=== PATIENT | male | born 1960 | race Caucasian/White ===

== ENCOUNTER 2020-06-16 13:32 | Outpatient (CLI) | payer BC, OTHER, SELFPAY ==
--- NOTE | ~2020-06-16 | MR_ITS ---
EXAMINATION: MR shoulder RT wo con DATE: 06/16/2020 14:44 INDICATION: Right shoulder pain. TECHNIQUE: Magnetic resonance imaging (MRI) of the right shoulder was performed without intravenous c ontrast. Sequences included axial PD-weighted FS FSE, coronal oblique PD-weighted FS FSE and T2-weigh pawan FS FSE, and sagittal oblique T2-weighted FS FSE and T1-weighted FSE. COMPARISON: Right shoulder radiographs 06/05/2020 FINDINGS: Coracoacromial arch: The acromion undersurface is curved in morphology (type II). There is severe acromioclavicular joint osteoarthritis including inferiorly directed osteophytes. There is moderate subacromial/subdeltoid bu rsitis. Rotator cuff: There is severe supraspinatus and infraspinatus tendinopathy. There is a bursal sided tear of suprasp inatus and infraspinatus tendons at the distal attachments measuring 2.0 cm anterior to posterior by 2 mm proximal to distal by up to 60% tendon thickness. Teres minor tendon is normal. There is severe subscapularis tendinopathy with small interstitial tear. There is no asymmetric fatty atrophy of the rotator cuff muscle bellies. Biceps tendon and glenoid labrum: Biceps tendon is in bicipital groove. There is mild intra-articular biceps tendinopathy. There is deg eneration of the superior labrum without well-defined tear. Fluid: There is no glenohumeral joint effusion. Bones/cartilage: Glenoid cartilage is normal. Humeral head cartilage is normal. IMPRESSION: 1. Severe rotator cuff tendinopathy with partial-thickness tears. 2. Mild intra-articular biceps tendinopathy. 3. Severe acromioclavicular joint osteoarthritis. 4. Moderate subacromial/subdeltoid bursitis. Reviewed, dictated and finalized at location A.
== END 2020-06-16 13:33 | disposition home or self-care (01) ==
LOC: ANHIMG 13:33
PROVIDERS: PCP Family Medicine; Visit Provider Nurse Practitioner Family
DX: M19.011 Primary osteoarthritis, right shoulder (principal); M75.51 Bursitis of right shoulder
CPT/HCPCS: 73221

== ENCOUNTER 2020-08-14 02:53 | Outpatient (CLI) | payer BC, OTHER, SELFPAY ==
[2020-08-14 16:34] LABS: SARS-CoV-2 RNA PCR Negative
== END 2020-08-14 02:54 | disposition home or self-care (01) ==
LOC: ANHCOVIDDT 02:54
PROVIDERS: PCP Family Medicine; Visit Provider Orthopaedic Surgery
DX: Z01.818 Encounter for other preprocedural examination (principal); Z20.828 Contact with and (suspected) exposure to other viral communicable diseases
CPT/HCPCS: 87635; C9803; U0003

== ENCOUNTER 2020-08-14 08:41 | Outpatient (CLI) | payer BC, OTHER, SELFPAY ==
--- NOTE | 2020-08-14 08:43 | ECG_ITS ---
Measurements Intervals [place] Rate: 64 P: 63 SD: 224 QRS: 11 QRSD: 94 T: 13 QT: 342 QTc: 353 Interpretive Statements SINUS RHYTHM WITH FIRST DEGREE AV BLOCK BORDERLINE T WAVE ABNORMALITY- INFERIOR LEADS BASELINE ARTIFACT- I, II, III, AVR, AVL, AVF ABNORMAL ECG Electronically Signed On 08-14-2020 8:58:41 CDT by Zachary Qureshi D.O.
[2020-08-14 09:36] LABS: Anion Gap 7 mmol/L (8-16); Blood Urea Nitrogen 20 mg/dL (9-20); Calcium 9.4 mg/dL (8.4-10.2); Carbon Dioxide 28 mmol/L (22-30); Chloride 100 mmol/L (98-107); Estimated Glomerular Filt Rate > 60; Glucose 120 mg/dL (75-110); Potassium 4.1 mmol/L (3.4-5.0); Sodium 135 mmol/L (137-145)
== END 2020-08-14 08:42 | disposition home or self-care (01) ==
LOC: ANHSURGERY 08:43
PROVIDERS: Anesthesiology; PCP Family Medicine; Visit Provider Orthopaedic Surgery
DX: Z01.818 Encounter for other preprocedural examination (principal); T50.2X5A Adverse effect of carbonic-anhydrase inhibitors, benzothiadiazides and other diuretics, initial encounter; I10 Essential (primary) hypertension; I44.0 Atrioventricular block, first degree
CPT/HCPCS: 36415; 80048; 93005

== ENCOUNTER 2020-08-16 00:07 | Day surgery (SDC) | payer BC, OTHER, SELFPAY ==
[2020-08-02 17:32] VITALS: BMI 35.3
--- NOTE | 2020-08-15 08:40 | PM.IMHP ---
H&P: HPI History of Present Illness Chief complaint: rt rotator cuff tear, rt ac joint djd Narrative: Shoulder/Arm Injury/Condition Pt. presents with Rt shoulder pain. Pt. states that there was not an injury but the pain started at the end of March. Dominant hand: right Current symptoms: Reports stiffness, weakness, radiation and crepitus Location: superior Character: constant, radiating and other (sharp ) Pain scale (0-10): 6 Onset: 1-3 months Exacerbated by: lifting, prolonged activity, sleeping, reaching/overhead motion and other (pushing objects ) Previous treatments: Anti-inflammatory meds: right, Heat: right and Other: right (rest ) Improved by treatment/surgery: no Review of Systems Review of Systems: All systems reviewed & are unremarkable except as noted in HPI and below Constitutional: Constitutional: Denies headache(s) and Denies weakness Eyes: Eyes: Denies blurry vision, Denies change in vision and Denies loss of vision ENT: Denies dizziness, Denies dry mouth, Denies headache(s) and Denies nasal congestion Cardiovascular: Cardiovascular: Denies chest pain, Denies syncope, Denies leg edema and Denies dyspnea on exertion Respiratory: Respiratory: Denies cough and Denies dyspnea on exertion Gastrointestinal: Gastrointestinal: Denies abdominal pain, Denies constipation and Denies diarrhea Genitourinary: Genitourinary: Denies urinary frequency Musculoskeletal: Musculoskeletal: Reports as per HPI and Denies numbness Integumentary/Breasts: Skin/Breast: Reports system reviewed and no additional complaints, except as docu Neurologic: Denies dizziness, Denies syncope, Denies headache(s), Denies loss of vision, Denies numbness and Denies weakness Psychiatric: Psychiatric: Reports no additional psychiatric complaints Endocrine: Endocrine: Reports no additional endocrine complaints Hematologic/Lymphatic: Hematologic/Lymphatic: Reports no additional hematologic/lymphatic complaints [facility] Past Medical History Medical History Allergic rhinitis, unspecified Back pain with history of spinal surgery Chronic left-sided low back pain with left-sided sciatica Essential hypertension Eustachian tube dysfunction Hypertension Mixed hyperlipidemia NOVA (obstructive sleep apnea) Other intervertebral disc degeneration, lumbar region Right shoulder pain Rotator cuff tear Screening for prostate cancer Seasonal allergies Subacromial bursitis Testosterone deficiency Surgical History Surgical History History of foot surgery Family History Family History Father Hypertension Family history of diabetes mellitus in first degree relative Family history of coronary artery disease Cerebrovascular accident, Onset Age: 72 Mother Patient's mother is in good health Social History Social History Smoking status: Never smoker Second hand tobacco smoke exposure: No Alcohol intake: current Drinks per week: 3 Substance use: never Spiritual care concerns: No Meds Home Medications and Allergies Home Medications Medication Instructions Recorded Confirmed Type loratadine 10 mg tablet 10 mg PO DAILY 11/11/19 08/02/20 History fluticasone propionate 50 1 spray NASAL DAILY #3 device 01/10/20 08/02/20 Rx mcg/actuation nasal spray,suspension meloxicam 15 mg tablet 15 mg PO DAILY #90 tablet 01/10/20 08/02/20 Rx atorvastatin 40 mg tablet 40 mg PO DAILY #90 tablet 01/17/20 08/02/20 Rx testosterone 5 pump TRANSDERM QAM #180 gm 07/25/20 08/02/20 Rx acetaminophen [Tylenol Extra 500 mg PO BID 08/02/20 08/02/20 History Strength] hydrochlorothiazide 12.5 mg PO DAILY 08/02/20 08/02/20 History lisinopril 10 mg PO DAILY 08/02/20 08/02/20 History Allergies Allergy/AdvReac Type Severity Reaction Sta
[2020-08-16] VITALS (8 sets, daily range): BP systolic 155–175; BP diastolic 80–105; PULSE 72–96; RESP 16–18; TEMP 36.2–37.2; O2SAT 93–100
--- NOTE | 2020-08-16 07:22 | WPDHPUPDATE1 ---
History and Physical Update Update Date/Time: 08/16/20 07:22 History and Physical has been reviewed, including an updated exam of the patient. There are NO changes in the patient's condition. Risks, benefits, and alternatives have been discussed and questions answered. Patient agrees to proceed with procedure.
[2020-08-16] MEDS: LACTATED RINGERS 1,000 ML 30 ML IV CONT ×2 (09:00→14:00)
[2020-08-16] MEDS: ACETAMINOPHEN 500 MG TABLET 1000 MG PO (09:16)
[2020-08-16] MEDS: CELECOXIB 200 MG CAPSULE PO (09:16)
--- NOTE | 2020-08-16 09:44 | WPDANESEPPF ---
Anes - Initial Pre Proc Eval Procedure: Operation Date: 08/16/20 10:30 Proposed Procedures p Right Rotator Cuff Repair, Distal Clavicle Excision - Amadeo Urbina MD Date/Time: 08/16/20 09:44 Surgeon: mAadeo Urbina MD Pre Op Diagnosis: rt rotator cuff tear, rt ac joint djd Patient Data Age: 59 Gender: M Height: 6 ft 1 in Weight: 120.8 kg Last Vital Signs Temp 37.2 C 08/16/20 09:23 Pulse 72 08/16/20 09:23 Resp 16 08/16/20 09:23 BP 158/92 H 08/16/20 09:23 Pulse Ox 97 08/16/20 09:23 Allergies Allergy/AdvReac Type Severity Reaction Status Date / Time red dye Allergy Mild lip Verified 08/16/20 08:41 swelling Home Medications Medication Instructions Recorded Confirmed Type loratadine 10 mg tablet 10 mg PO DAILY 11/11/19 08/16/20 History fluticasone propionate 50 1 spray NASAL DAILY #3 device 01/10/20 08/16/20 Rx mcg/actuation nasal spray,suspension meloxicam 15 mg tablet 15 mg PO DAILY #90 tablet 01/10/20 08/16/20 Rx atorvastatin 40 mg tablet 40 mg PO DAILY #90 tablet 01/17/20 08/16/20 Rx testosterone 5 pump TRANSDERM QAM #180 gm 07/25/20 08/16/20 Rx acetaminophen [Tylenol Extra 500 mg PO BID 08/02/20 08/16/20 History Strength] hydrochlorothiazide 12.5 mg PO DAILY 08/02/20 08/16/20 History lisinopril 10 mg PO DAILY 08/02/20 08/16/20 History Patient hx anesthesia problems: none Family hx anesthesia problems: none PMFSH Past Medical History Medical History Allergic rhinitis, unspecified Back pain with history of spinal surgery Chronic left-sided low back pain with left-sided sciatica Essential hypertension Eustachian tube dysfunction Hypertension Mixed hyperlipidemia NOVA (obstructive sleep apnea) Other intervertebral disc degeneration, lumbar region Right shoulder pain Rotator cuff tear Screening for prostate cancer Seasonal allergies Subacromial bursitis Testosterone deficiency Surgical History Surgical History History of foot surgery Family History Family History Father Hypertension Family history of diabetes mellitus in first degree relative Family history of coronary artery disease Cerebrovascular accident, Onset Age: 72 Mother Patient's mother is in good health Social History Social History Smoking status: Never smoker Second hand tobacco smoke exposure: No Alcohol intake: current Drinks per week: 3 Substance use: never Living arrangements: with family Spiritual care concerns: No Anes - Eval Final PreProcedure Day of Procedure 08/16/20 09:44 Patient weight: obese Heart: regular rate and rhythm Lungs: clear to auscultation Airway: Mallampati scale class II Neurological: alert and oriented Last oral intake: >/= 8 hours ASA classification: III Emergent: no Anesthetic plan: proceed Anesthesia type and monitoring: general ETT and standard monitoring Informed Consent: The patient's anesthetic plan and its attendant risks and benefits were discussed with the patient/family/POA. Questions were solicited and answers provided to the satisfaction of the patient/family/POA.
--- NOTE | 2020-08-16 10:55 | WPDANESPNB ---
Anes - Peripheral Nerve Block Date/Time: 08/16/20 10:55 I have discussed with the patient/family/POA the placement of a peripheral nerve block for post-operative pain management, including associated risks, benefits, complications, and side effects. Alternative methods of post-operative analgesia were detailed. Questions were solicited and answers provided to the satisfaction of the patient/family/POA. Time-Out: A pre-procedural Time-Out was completed immediately before starting the procedure and confirmed: Patient Identification, Site, Procedure, Patient Position and the Availability of Requisite Equipment. Clinical Indications: Acute post-operative pain management requested by the operative surgeon. Nerve Block Insertion Note Anes-nerve block: interscalene right Skin prep: chlorhexidine Needle: 22 gauge, stimulating, insulated echogenic needle. Needle length: 50 mm Technique: ultrasound Injectate: bupivacaine 0.5% with epi 5 mcg/ml (30) and dexamethasone (mg) (8) Observations: tolerated well Complications: none Procedure start time:: 1045 Procedure end time:: 1051
[2020-08-16] MEDS: ceFAZolin 3 GM/D5W 100 ML 100 ML IVPB (10:57)
--- NOTE | 2020-08-16 14:29 | SUR.PHASEI ---
PT TOOK HIS LEFT ARM AND PICKED UP HIS RT ARM AND MOVED IT UPWARDS. ASKED PT NOT TO MOVE SURGICAL ARM WITH LT ARM. DO NOT WANT TO RISK INJURY WITH NERVE BLOCK AND NUMBNESS. PT VERBALIZED UNDERSTANDING. GLASSES GIVEN TO PT
--- NOTE | 2020-08-16 14:45 | SUR.PHASEI ---
PT AWAKE AND ALERT. STATES READY TO SIT IN RECLINER AND HAVE A DRINK. MEETS DISCHARGE CRITERIA
--- NOTE | 2020-08-16 16:02 | PM.PROC ---
Procedure Note - Detailed Date of procedure: 08/16/20 Pre-op diagnosis: rt rotator cuff tear, rt ac joint djd Post-op diagnosis: same Procedure performed: REPAIR OF RIGHT ROTATOR CUFF WITH DCE Description of procedure: THE PATIENT WAS TAKEN TO THE OPERATING ROOM AND THEN INTUBATED AND PLACED IN THE BEACH CHAIR POSITION. THE RIGHT UPPER EXTREMITY WAS PREPPED AND DRAPED IN THE NORMAL STERILE FASHION. AN INCISION WAS MADE IN BETWEEN THE DOMINIC-LATERAL ACROMION AND THE AC JOINT. THE FASCIA WAS IDENTIFIED. THE AC JOINT WAS PALPATED. AN INCISION WAS MADE OVER THE CAPSULE OF THE AC JOINT. THE AC JOINT WAS EXPOSED. THERE WAS SEVERE DJD. A DISTAL CLAVICLE EXCISION WAS PREFORMED REMOVING APPROXIMATELY 1 CM OF BONE FROM THE DISTAL CLAVICLE. AND AN OSTEOPHYTE WAS REMOVED FROM THE UNDERSURFACE OF THE CLAVICLE. THE WOUND WAS WASHED AND THE CAPSULE WAS CLOSED WITH 0 VICRYL SUTURE. NEXT A MINI OPEN INCISION WAS MADE THROUGH THE DELTOID MUSCLE EXPOSING THE SUBACROMIAL SPACE. A LIMITED ACROMIOPLASTY WAS PREFORMED. THE ROTATOR CUFF WAS IDENTIFIED. THERE WAS A LARGE TEAR TO THE ENTIRE CUFF. THERE WAS ALSO A VERTICAL THROUGH THE SUPRASPINATUS TENDON. THE GREATER TUBEROSITY WAS DEBRIDED TO BLEEDING BONE. 3 ATHREX 5.5 SUTURE ANCHORS WERE PLACED IN TO GOOD BONE AND HAD VERY GOOD BITES. ABBIE-JEIMY TYPE REPAIRS WERE DONE TO THE ROTATOR CUFF AND THERE WAS GOOD APPROXIMATION TO THE GREATER TUBEROSITY. THE VERTICAL COMPONENT WAS ALSO REPAIRED WITH #2 FIBER WIRE. THE REPAIR WAS EXCELLENT. THERE WAS NO IMPINGEMENT ON THE REPAIR FROM THE ACROMION WITH RANGE OF MOTION. THE WOUND WAS IRRIGATED WITH COPIOUS AMOUNTS OF ANTIBIOTIC SOLUTION. THE DELTOID MUSCLE WAS REPAIRED WITH #2 FIBER WIRE AND 0 VICRYL SUTURE. THE SUBCUTANEOUS LAYER WAS APPROXIMATED WITH 2-0 VICRYL. THE SKIN WAS APPROXIMATED WITH 3-0 QUIL AND DERMABOND. STERILE DRESSING WAS APPLIED. PATIENT WAS EXTUBATED. Surgeon: Amadeo Urbina MD
== END 2020-08-16 16:05 | disposition home or self-care (01) ==
PROVIDERS: PCP Family Medicine; Visit Provider Orthopaedic Surgery
PROC: (CPT 23420; principal; 2020-08-16 10:30)
DX: M75.101 Unspecified rotator cuff tear or rupture of right shoulder, not specified as traumatic (principal); G89.18 Other acute postprocedural pain; I10 Essential (primary) hypertension; E78.2 Mixed hyperlipidemia; G47.33 Obstructive sleep apnea (adult) (pediatric); E66.9 Obesity, unspecified; Z68.35 Body mass index [BMI] 35.0-35.9, adult
CPT/HCPCS: 23420; 23120; 64415; A4565; A9270; C1713; J0360; J0690; J1100; J2250; J2405; J2704; J2710; J3010; J7120

== ENCOUNTER 2021-06-28 00:36 | Day surgery (SDC) | payer BC, OTHER, SELFPAY ==
[2021-06-22 14:02] VITALS: BMI 36.3
--- NOTE | 2021-06-28 07:12 | WPDHPUPDATE1 ---
History and Physical Update Update Date/Time: 06/28/21 07:12 History and Physical has been reviewed, including an updated exam of the patient. There are NO changes in the patient's condition. Risks, benefits, and alternatives have been discussed and questions answered. Patient agrees to proceed with procedure.
[2021-06-28 12:25] VITALS: BP 127/64; PULSE 79; RESP 20; TEMP 36.3; O2SAT 97
[2021-06-28] MEDS: LIDO 1%/EPINEPHRINE 1:100,000 20 ML VIAL 6 ML INFILTRATE (13:15)
[2021-06-28 13:19] VITALS: BP 134/73; PULSE 73; RESP 20; O2SAT 96
[2021-06-28 13:29] VITALS: BP 167/79; PULSE 72; RESP 20; O2SAT 96
[2021-06-28 13:36] VITALS: BP 148/73; PULSE 70; RESP 20; O2SAT 96
[2021-06-28] MEDS: BACITRACIN OINTMENT 15 GM TUBE 1 APPLIC TOPICAL (13:36)
--- NOTE | 2021-06-28 14:35 | PM.OP ---
Procedure Note - Brief Procedure Note - Brief Date of procedure: 06/28/21 Pre-op diagnosis: left carpal tunnel syndrome Post-op diagnosis: same Procedure performed: Left open carpal tunnel release Anesthesia: local Surgeon: Ulices Ortiz MD Drains: No Packing: No Pathology: none sent Complications: No immediate complications Condition: stable Disposition: same day
--- NOTE | 2021-06-28 14:45 | W.PM.PROC2 ---
Procedure Note - Detailed Date of Procedure 06/28/21 Pre-op Diagnosis left carpal tunnel syndrome Post-op Diagnosis same Procedure Performed left open carpal tunnel release Surgeon Ulices Ortiz MD Anesthesia local Description of Procedure the left wrist was marked in holding area. The patient was taken to the operating room placed supine on the operating table. The time-out was held and confirmed. The site was identified And marked. It was locally infiltrated with 1% lidocaine with epinephrine. The tourniquet was inflated to 250 mmHg. the incision was made as marked and dissection was carried bluntly through the subcutaneous tissue to the palmar fascia. This and the carpal ligament were incised with a 15. Blade. Under 3 point retraction the ligament divided distally and proximally for complete release. There is no unusual anatomy noted the wound was closed with interrupted 4-0 nylon suture. A small bandage applied as usual. The tourniquet was released and he is discharged in stable condition. Drains No Packing No Pathology none sent Complications No immediate complications Condition stable Disposition same day
[2021-06-28 14:57] VITALS: BP 124/64; PULSE 70; RESP 16; O2SAT 98
== END 2021-06-28 14:00 | disposition home or self-care (01) ==
PROVIDERS: PCP Family Medicine; Visit Provider Plastic Surgery
PROC: (CPT 64721; principal; 2021-06-28 13:30)
DX: G56.02 Carpal tunnel syndrome, left upper limb (principal)
CPT/HCPCS: 64721; A9270

== ENCOUNTER 2021-11-14 14:30 | Outpatient (RCR) | payer BC, OTHER, SELFPAY ==
--- NOTE | 2021-10-16 08:58 | OTOPEVAL ---
OCCUPATIONAL THERAPY INITIAL EVALUATION REPORT 10/16/21 Thank you for referring Jayy Soares to [facility].? The patient is scheduled to be seen for therapy? 2x/week for 3 weeks. Please review, sign, date and return this plan of care ROXANNE. I agree with and certify that the following plan of care is medically necessary. Referring Physician Date Referring Provider: Ulices Ortiz MD *OT Outpatient Evaluation Start: 10/16/21 07:49 Outpatient Past Medical History Neurological History Hx Neurological Disorders No Significant History Cardiovascular History Hx Hypercholesterolemia Yes Hx Hypertension Yes Respiratory History Hx Bronchitis Yes Hx Sleep Apnea Yes: uses CPAP Hx Other Respiratory Disorders Yes: seasonal allergies Gastrointestinal History Hx Gastrointestinal Disorders No Significant History Genitourinary History Hx Genitourinary Disorders No Significant History Musculoskeletal History Hx Arthritis Yes Hx Fractures Yes: left arm, left foot, left ankle Hx Spinal Surgery Yes: 3 back surgeries Hematological History Hx Hematological Disorders No Significant History Endocrine History Hx Endocrine Disorders No Significant History HEENT History Hx HEENT Disorders No Significant History Integumentary History Hx Shingles Yes: VACCINATES Reproductive History Hx Reproductive Disorders No Significant History Psychosocial History Hx Psychiatric Disorders No Significant History Pain History History of Any Previous or Ongoing No Significant History Instance of Pain Anesthesia History Hx Anesthesia Reactions No Significant History Evaluation Information Problem Diagnosis Surgical site pain s/p left carpal tunnel release Onset 06/28/21 Subjective Information Patient reports experiencing Query Text:As Reported By Patient/ residual pain in the left palm Family with lifting, gripping, and palpation. He notes that he has noticed using the hand less because of the pain and hypersensitivity. Prior Level of Function Activity Level (Last 3 Months) Occupation Works @ [employer] Hand Dominance Right Driving Yes Pain Assessment Timing of Pain Assessment Timing of Pain Assessment Assessment Pain Scale Pain Scale Used Numeric (1 - 10) Self Report Pain Assessment Left Hand(s) Reported Pain Level 0 Lowest Pain Intensity 0 Greatest Pain Intensity 6 Pain Score Pain Score 0: Self Report Upper Extremity Range o
--- NOTE | 2021-11-14 15:13 | OTOPEVAL ---
OCCUPATIONAL THERAPY RE-EVALUATION AND DISCHARGE SUMMARY 11/14/21 Patient presents today for OT re-evaluation following 3 weeks of therapy. Therapy has consisted of use of modalities, scar mgmt, manual therapy, and ROM/tendon glides. He reports improved functional use of his hands, reduced pain with hand use, and is able to put pressure through his palm with less pain. He is independent with all materials and ready for discharge. Thank you for referring Jayy Soares to [facility]. Please review, sign, date and return this D/C Note ROXANNE. I agree with and certify that the following plan of care is medically necessary. Referring Physician Date Referring Provider: Ulices Ortiz MD *OT Outpatient Re-Evaluation Start: 10/16/21 07:49 Problem Diagnosis Surgical site pain s/p left carpal tunnel release Onset 06/28/21 Subjective Information Patient reports that the hand Query Text:As Reported By Patient/ has improved since beginning Family therapy. He states that he is able to cheese cutter items put pressure through his hand now with less intense pain. He reports being able to use his left hand without having to think about it . Pain Assessment Timing of Pain Assessment Timing of Pain Assessment Re-assessment Pain Scale Pain Scale Used Numeric (1 - 10) Self Report Pain Assessment Left Hand(s) Reported Pain Level 0 Lowest Pain Intensity 0 Greatest Pain Intensity 4 Other Pain Aggravating Factors Pressure on the incision Pain Score Pain Score 0: Self Report Upper Extremity Range of Motion Finger Range of Motion Bilateral Finger Range of Motion Comments Finger active ROM is WNL and symmetrical to the right hand. Thumb Range of Motion Bilateral Thumb Range of Motion Comments Thumb active ROM is WNL and symmetrical to the right hand. Hand Double Corner Cutter/Pinch Strength Assessment Hand Left Double Corner Cutter Strength (lbs) 94.67 Lateral Pinch Strength (lbs) 24 Palmar Pinch Strength (lbs) 13 Tip Pinch Strength (lbs) 13 Hand Double Corner Cutter/Pinch Strength Comments Norms: -Double Corner Cutter 85 lbs. -Lateral 19 lbs. -Palmar 16 lbs. -Tip 16.5 lbs. OT Clinical Summary OT Clinical Summary Patient presents today for OT re-evaluation following 3 weeks of therapy. Therapy has consisted of use of modalities , scar mgmt, manual therapy, and ROM/tendon glides. He
== END 2021-11-15 14:00 | disposition home or self-care (01) ==
LOC: ANHOT 14:30
PROVIDERS: PCP Family Medicine; Visit Provider Plastic Surgery
DX: G89.18 Other acute postprocedural pain (principal)
CPT/HCPCS: 97018; 97035; 97110; 97140; 97165

== ENCOUNTER → 2022-03-05 14:35 | Outpatient (CLI) | payer BC, OTHER, SELFPAY ==
--- NOTE | ~2022-03-05 | XR_ITS ---
EXAM: XR cervical spine min 6V HISTORY: Radiculopathy, cervical region COMPARISON: 10/01/2011. FINDINGS: Craniocervical association and atlantoaxial joint are normal. No prevertebral soft tissue swelling. The vertebral body heights and are maintained. Minimal grade 1 anterolisthesis of C2 on 3, C3 on 4, and C5 on C6 in flexion that reduces in extension. Multilevel facet and uncovertebral joint hypertrophy may contribute to right-sided neural foraminal narrowing however the degree of which is e xacerbated by suboptimal positioning. IMPRESSION: Multilevel mild dynamic listhesis. Right-sided neural foraminal narrowing is suspected. If clinically consistent, consider CT of the cervical spine for further evaluation and better characterization. Reviewed, dictated and finalized at location K. IMPRESSION: Multilevel mild dynamic listhesis. Right-sided neural foraminal narrowing is cao spected. If clinically consistent, consider CT of the cervical spine for furthe r evaluation and better characterization.
== END ==
PROVIDERS: Visit Provider Neurological Surgery
DX: M54.12 Radiculopathy, cervical region (principal)
CPT/HCPCS: 72052

== ENCOUNTER 2022-07-04 10:41 | Outpatient (CLI) | payer BC, OTHER, SELFPAY ==
--- NOTE | ~2022-07-04 | MR_ITS ---
EXAMINATION: MR cervical spine wo con DATE: 07/04/2022 11:12 INDICATION: Cervical radiculopathy. TECHNIQUE: Magnetic resonance imaging (MRI) of the cervical spine was performed without intravenous c ontrast. Sequences included sagittal T2-weighted FSE, sagittal T2-weighted FS FSE, sagittal T1-weight ed FSE, axial MERGE, and axial T2-weighted FSE. COMPARISON: CT cervical spine radiographs 03/05/2022 FINDINGS: Bone alignment is normal. Vertebral body heights are normal. There is mildly decreased disc height at C5-C6 and C6-C7. The spinal cord signal intensity is normal. The following disc levels are specifically discussed: C2-C3: The disc does not extend beyond the endplate margin. There is moderate right and mild left unc overtebral joint osteoarthritis. There is severe right and mild left facet joint osteoarthritis. Ther e is moderate right neural foraminal stenosis. There is no central canal stenosis. C3-C4: There is a central extrusion. There is mild bilateral uncovertebral joint osteoarthritis. Ther e is moderate right and mild left facet joint osteoarthritis. There is no neural foraminal stenosis. There is no central canal stenosis. C4-C5: The disc is bulging with superimposed central extrusion. There is mild bilateral uncovertebral joint osteoarthritis. There is mild bilateral facet joint osteoarthritis. There is moderate right an d mild left neural foraminal stenosis. There is mild central canal stenosis. C5-C6: There is a right central extrusion. There is mild bilateral uncovertebral joint osteoarthritis . There is moderate left facet joint osteoarthritis. There is mild bilateral neural foraminal stenosi s. There is mild central canal stenosis. C6-C7: There is a left central extrusion. There is no uncovertebral joint osteoarthritis. There is mo derate right and mild left facet joint osteoarthritis. There is no neural foraminal stenosis. There i s mild central canal stenosis with ventral indentation of the spinal cord. C7-T1: The disc does not extend beyond the endplate margin. There is no uncovertebral joint osteoarth ritis. There is severe right and moderate left facet joint osteoarthritis. There is mild bilateral ne ural foraminal stenosis. There is no central canal stenosis. IMPRESSION: 1. Moderate cervical spondylosis. Reviewed, dictated and finalized at location A.
== END 2022-07-04 10:42 | disposition home or self-care (01) ==
LOC: ANHIMG 10:44
PROVIDERS: PCP Family Medicine; Visit Provider Neurological Surgery
DX: M47.22 Other spondylosis with radiculopathy, cervical region (principal)
CPT/HCPCS: 72141

== ENCOUNTER 2022-10-04 08:27 | Emergency (ER) | payer BC, OTHER, SELFPAY ==
[2022-10-04 08:36] VITALS: BP 156/96; PULSE 72; RESP 16; TEMP 36.6; O2SAT 98
--- NOTE | 2022-10-04 08:43 | ED.EAR ---
HPI - Ear Problem General Chief complaint: Ear Stated complaint: EARACHE Time Seen by Provider: 10/04/22 08:48 Source: patient and RN notes reviewed Mode of arrival: ambulatory Limitations: no limitations History of Present Illness HPI Narrative: 62-year-old male presents concerned for sinus pressure and ear pain. He reports he has had ear fullness, pain and was treated for possible infection several weeks ago with cefdinir and steroids. He reports the symptoms not greatly improved with those medications. He reports he flies a lot for work and has had eardrum ruptures before. He reports he flew on an airplane yesterday, he has been taking Flonase, Sudafed, allergy medicine without much relief of his symptoms. Reports facial pain pressure is getting worse. MD Complaint: ear pain Related Data Home Medications Medication Instructions Recorded Confirmed lisinopril 10 mg tablet 30 mg PO DAILY 06/27/21 10/04/22 fexofenadine 180 mg tablet 180 mg PO DAILY 08/22/21 10/04/22 (Nicole Allergy) testosterone 10 mg/0.5 5 pump transdermal QAM 10/04/22 10/04/22 gram/actuation transdermal gel pump Allergies Allergy/AdvReac Type Severity Reaction Status Date / Time red dye Allergy Mild lip Verified 10/04/22 08:30 swelling Review of Systems Review of Systems: CONSTITUTIONAL: Denies malaise, chills, sweats, or fever. EYES: Denies visual changes, redness, or discharge. ENT: Reports rhinorrhea, congestion, sinus pain, right ear pain and pressure CARDIOVASCULAR: Denies chest pain, palpitations, or edema. RESPIRATORY: Denies cough. Denies dyspnea. GASTROINTESTINAL: Denies abdominal pain, nausea, vomiting, diarrhea SKIN: Denies rash or itching. MUSCULOSKELETAL: Denies myalgia. NEUROLOGIC: Denies headache. All systems reviewed & are unremarkable except as noted in HPI and below PMFSH Past Medical History Medical History (Updated 10/04/22 @ 08:57 by Kamilah Hahn NP) Allergic rhinitis, unspecified Back pain with history of spinal surgery BMI 37.0-37.9, adult Chondrocalcinosis Chronic left-sided low back pain with left-sided sciatica Chronic right hip pain Dry eyes, bilateral Essential hypertension Eustachian tube dysfunction Hypertension Mixed hyperlipidemia NOVA (obstructive sleep apnea) Other intervertebral disc degeneration, lumbar region Right knee DJD Right shoulder pain Rotator cuff tear Screening for prostate cancer Seasonal allergies Serous otitis media Subacromial bursitis Testosterone deficiency Surgical History Surgical History History of carpal tunnel release History of foot surgery Family History Family History Father Hypertension Family history of diabetes mellitus in first degree relative Family history of coronary artery disease Cerebrovascular accident, Onset Age: 72 Mother Patient's mother is in good health Sibling No problems noted. 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 There is no relevant family history pertinent to the presenting complaint Exam Narrative: GENERAL: Well-appearing, well-nourished, and in no acute distress. HEAD: Normocephalic EYES: PERRLA, conjunctivae clear ENT: Nares clear, turbinates leif
== END 2022-10-04 08:59 | disposition home or self-care (01) ==
PROVIDERS: Emergency Provider Nurse Practitioner; PCP Family Medicine
DX: J32.9 Chronic sinusitis, unspecified (principal); I10 Essential (primary) hypertension; E78.2 Mixed hyperlipidemia
CPT/HCPCS: 99213; G0463

== ENCOUNTER 2022-10-04 12:28 | Outpatient (CLI) | payer BC, OTHER, SELFPAY ==
--- NOTE | ~2022-10-04 | MR_ITS ---
EXAMINATION: MR lumbar spine wo con DATE: 10/04/2022 13:02 INDICATION: Radiculopathy, lumbar region. TECHNIQUE: Magnetic resonance imaging (MRI) of the lumbar spine was performed without intravenous con trast. Sequences included sagittal T2-weighted FSE, sagittal T2-weighted FS FSE, sagittal T1-weighted FSE, and axial T2-weighted FSE. COMPARISON: Lumbar spine MRI 10/18/2019 FINDINGS: There is 5 degrees dextrocurvature of thoracolumbar spine. There is 3 mm retrolisthesis of L1 on L2 and L5 on S1. There is mild chronic anterior wedging of T12 vertebral body. There are Schmor l's nodes at multiple levels. There is moderately decreased disc height at L1-L2 and L4-L5 and severe ly decreased disc height at L5-S1 with endplate remodeling. Epidural lipomatosis is noted. The distal spinal cord signal intensity is normal. The conus medullaris is at T12. The following disc levels ar e specifically discussed: L1-L2: The disc is bulging and has an annular fissure. There is mild bilateral facet joint osteoarthr itis. There is mild right and moderate left neural foraminal stenosis. There is mild central canal st enosis. There is moderate stenosis of left lateral recess. L2-L3: The disc is bulging. There is moderate bilateral facet joint osteoarthritis. There is mild rig ht and moderate left neural foraminal stenosis. There is mild central canal stenosis. L3-L4: The disc is bulging and has an annular fissure. There is moderate right and mild left facet robin int osteoarthritis. There is moderate bilateral neural foraminal stenosis. There is moderate central canal stenosis. L4-L5: The disc is bulging and has an annular fissure. There is severe right and moderate left facet joint osteoarthritis. There is moderate bilateral neural foraminal stenosis. There is mild central ca nal stenosis. There is moderate stenosis of the lateral recesses. L5-S1: The disc is bulging with superimposed left subarticular zone extrusion. There is moderate bila teral facet joint osteoarthritis. There is moderate bilateral neural foraminal stenosis. There is mil d central canal stenosis. There is severe stenosis of left lateral recess. IMPRESSION: 1. Severe lumbar spondylosis, stable from 10/18/2019. Reviewed, dictated and finalized at location A. N PERSON
== END 2022-10-04 12:29 | disposition home or self-care (01) ==
LOC: ANHIMG 12:32
PROVIDERS: PCP Family Medicine; Visit Provider Neurological Surgery
DX: M47.26 Other spondylosis with radiculopathy, lumbar region (principal)
CPT/HCPCS: 72148

== ENCOUNTER 2022-10-30 13:48 | Outpatient (CLI) | payer BC, OTHER, SELFPAY ==
--- NOTE | 2022-10-30 13:56 | ECG_ITS ---
Measurements Intervals [place] Rate: 71 P: 56 HI: 212 QRS: 12 QRSD: 100 T: 3 QT: 330 QTc: 361 Interpretive Statements SINUS RHYTHM WITH FIRST DEGREE AV BLOCK NONSPECIFIC T-WAVE ABNORMALITY COMPARED TO ECG 08/14/2020 09:17:15 NO SIGNIFICANT CHANGES Electronically Signed On 10-30-2022 15:18:20 WIRELESS FIELD TECHNICIAN by Karel Ascencio M.D.
== END 2022-10-30 13:49 | disposition home or self-care (01) ==
PROVIDERS: PCP Family Medicine; Visit Provider Family Medicine
DX: I10 Essential (primary) hypertension (principal); I44.0 Atrioventricular block, first degree
CPT/HCPCS: 93005

== ENCOUNTER 2022-11-16 12:06 | Outpatient (CLI) | payer BC, OTHER, SELFPAY ==
--- NOTE | ~2022-11-16 | MR_ITS ---
EXAMINATION: MR knee RT wo con DATE: 11/16/2022 14:05 INDICATION: Right knee pain, medial side. [place] a pop while climbing. TECHNIQUE: Magnetic resonance imaging (MRI) of the right knee was performed without intravenous contr ast. Sequences included axial PD-weighted FS FSE, coronal PD-weighted FSE and PD-weighted FS FSE, sag ittal PD-weighted FSE, and sagittal T2-weighted FS FSE. COMPARISON: X-ray right knee 09/24/2022, images only. FINDINGS: Medial compartment: Predominantly vertically oriented tear at the junction of the posterior horn and body of the medial m eniscus, in a background of severe abnormal meniscal signal change. Medial meniscal extrusion with a flap of meniscal tissue extending into the inferior aspect of the medial joint recess. Moderate diffu se cartilage thinning. Mild osteophytosis. Lateral compartment: Degenerative signal change and fraying in the lateral meniscus without focal tear. Moderate diffuse c artilage thinning. Mild osteophytosis. Patellofemoral compartment: Multifocal areas of near full-thickness cartilage loss on the medial facet and median ridge, with sub chondral reactive marrow change. Retinacula are intact. Ligaments and tendons: Abnormal signal in the mildly thickened ACL. Mild thickening and hyperintensity superficial and deep to the proximal fibers of the MCL. The LCL and PCL are intact. Fluid: No significant joint fluid. Osseous/other: Fairly extensive marrow edema in the medial femoral condyle. IMPRESSION: 1. Vertically oriented tear at the junction of the posterior horn and body of the medial meniscus, wi th meniscal extrusion. 2. Partial-thickness ACL tear. 3. Partial-thickness MCL tear. 4. Extensive marrow contusion/edema involving the medial femoral condyle. Reviewed, dictated and finalized at location K. BLOWER IMPRESSION: 1. Vertically oriented tear at the junction of the posterior horn and body of t he medial meniscus, with meniscal extrusion. 2. Partial-thickness ACL tear. 3. Partial-thickness MCL tear. 4. Extensive marrow contusion/edema involving the medial femoral condyle.
== END 2022-11-16 12:07 | disposition home or self-care (01) ==
PROVIDERS: PCP Family Medicine; Visit Provider Nurse Practitioner Family
DX: M17.11 Unilateral primary osteoarthritis, right knee (principal)
CPT/HCPCS: 73721

== ENCOUNTER 2023-01-03 08:26 | Outpatient (CLI) | payer BC, OTHER, SELFPAY ==
[2023-01-03 09:15] LABS: Anion Gap 3 mmol/L (8-16); Blood Urea Nitrogen 16 mg/dL (9-20); Calcium 8.8 mg/dL (8.4-10.2); Carbon Dioxide 32 mmol/L (22-30); Chloride 101 mmol/L (98-107); Estimated Glomerular Filt Rate > 60; Glucose 132 mg/dL (65-110); Potassium 4.3 mmol/L (3.4-5.0); Sodium 136 mmol/L (137-145)
== END 2023-01-03 08:27 | disposition home or self-care (01) ==
PROVIDERS: Anesthesiology; PCP Family Medicine; Visit Provider Orthopaedic Surgery
DX: Z79.899 Other long term (current) drug therapy (principal); Z01.818 Encounter for other preprocedural examination
CPT/HCPCS: 36415; 80048

== ENCOUNTER 2023-01-08 00:54 | Day surgery (SDC) | payer BC, OTHER, SELFPAY ==
[2022-12-27 14:42] VITALS: BMI 36.1
--- NOTE | 2022-12-27 14:50 | PC.NURSE ---
Report to the Outpatient Waiting Room, entrance under the green pavilion located off [facility], at time 1130 on date 01/08/23. Planned Procedure Time: 1330. Time changes happen often and if your time is changed the preop area will call you the afternoon before. - You and your visitor will be asked to self-screen and do not enter if you have any COVID symptoms. - Only one visitor is requested with a max of two and NO children visitors are allowed at this time. - The patient visitor may be requested to leave or wait in car when not with patient due to distancing restrictions. - A mask is optional within the hospital at this time. Patients may have clear liquids (water, carbonated beverages, clear teas, apple juice) until 3 hours prior to surgery (1030) with a maximum of 20 ounces. - No food from midnight until time of surgery Take the following medications with a SIP of water the morning of surgery: NONE DO NOT STOP ANY OF YOUR OTHER PRESCRIPTION MEDICATIONS PRIOR TO SURGERY EXCEPT THE FOLLOWING Medications to discontinue per physician: MELOXICAM Date to take last dose: PER DR. MCCLOUD Please no make-up, nail cook islander, hairspray, perfume, deodorant, or body powder the day of surgery. No jewelry (including any body piercings) or valuables the day of surgery, leave them at home. Please take a shower or bath the night before, or the morning of, surgery with an antibacterial soap. Wear comfortable, loose fitting clothing. - Jewelry must be removed prior to entering the operating room. Rings and piercings that are not removed may be cut off. - The hospital will not accept responsibility for valuables. - Please leave all valuables, including medications, at home the day of surgery. If you are going home after surgery, a licensed national van truck driver must drive you home. - NO public transportation without another adult if you receive anesthesia. - We recommend that an adult stay with you for 24 hours following discharge. - We also recommend that you do not drive, make important decision, drink alcoholic beverages, or take any drugs that were not prescribed by your health care provider for at least 24 hours after your discharge time. Follow any additional instructions given to you from your surgeon. If you or anyone in your household have experienced Covid symptoms in the past week, please notify your surgeon or the nurse liaison at the phone number below for possible testing. Telephone instructions given to PT - JEMAL GARVIN and asked if any additional questions and then verbalized understanding. Patient advised to call surgeon office or pre surgery nurse liaison [phone] if any additional questions.
[2023-01-08] VITALS (8 sets, daily range): BP systolic 144–197; BP diastolic 72–94; PULSE 60–77; RESP 12–20; TEMP 36.6–36.8; O2SAT 96–99
--- NOTE | 2023-01-08 07:22 | WPDHPUPDATE1 ---
History and Physical Update Update Date/Time: 01/08/23 07:22 History and Physical has been reviewed, including an updated exam of the patient. There are NO changes in the patient's condition. Risks, benefits, and alternatives have been discussed and questions answered. Patient agrees to proceed with procedure.
[2023-01-08] MEDS: ACETAMINOPHEN 500 MG TABLET 1000 MG PO (12:00)
[2023-01-08] MEDS: CELECOXIB 200 MG CAPSULE PO (12:00)
[2023-01-08] MEDS: LACTATED RINGERS 1,000 ML 30 ML IV CONT ×2 (12:10→15:08)
--- NOTE | 2023-01-08 12:21 | WPDANESEPPF ---
Anes - Initial Pre Proc Eval Procedure: Operation Date: 01/08/23 13:30 Proposed Procedures p Right Knee Arthroscopy, Proceed As Indicated - Amadeo Urbina MD Date/Time: 01/08/23 12:21 Surgeon: Amadeo Urbina MD Pre Op Diagnosis: right knee medial meniscus tear Patient Data Age: 62 Gender: M Height: 1.85 m Weight: 126.4 kg Allergies Allergy/AdvReac Type Severity Reaction Status Date / Time red dye Allergy Mild lip Verified 01/08/23 11:51 swelling Home Medications Medication Instructions Recorded Confirmed Type lisinopril 10 mg tablet 40 mg PO DAILY 06/27/21 01/08/23 History fexofenadine 180 mg tablet 180 mg PO DAILY 08/22/21 01/08/23 History (Nicole Allergy) fluticasone propionate 50 1 spray intranasal DAILY #3 device 08/22/21 01/08/23 Rx mcg/actuation nasal spray,suspension (Flonase Allergy Relief) atorvastatin 40 mg tablet 40 mg PO DAILY #90 tabs 03/18/22 01/08/23 Rx meloxicam 15 mg tablet 15 mg PO DAILY #90 tabs 09/20/22 01/08/23 Rx testosterone 10 mg/0.5 5 pump transdermal QAM 10/04/22 01/08/23 History gram/actuation transdermal gel pump hydrochlorothiazide 12.5 mg tablet 12.5 mg PO DAILY #90 tabs 12/08/22 01/08/23 Rx chlorhexidine gluconate 4 % 1 applic topical ONCE #237 mL 01/01/23 01/08/23 Rx topical liquid (Hibiclens) Patient hx anesthesia problems: none Family hx anesthesia problems: none Results Review: All pre-operative results and documents have been reviewed as part of the pre-operative evaluation. COUNTS INCLUDE 234 BEDS AT THE [facility] Past Medical History Medical History Allergic rhinitis, unspecified Back pain with history of spinal surgery BMI 37.0-37.9, adult Chondrocalcinosis Chronic left-sided low back pain with left-sided sciatica Chronic right hip pain Dry eyes, bilateral Essential hypertension Eustachian tube dysfunction Hypertension Medial meniscus tear Mixed hyperlipidemia NOVA (obstructive sleep apnea) Other intervertebral disc degeneration, lumbar region Right knee DJD Right shoulder pain Rotator cuff tear Screening for prostate cancer Seasonal allergies Serous otitis media Subacromial bursitis Testosterone deficiency Surgical History Surgical History History of carpal tunnel release History of foot surgery Family History Family History Father Hypertension Family history of diabetes mellitus in first degree relative Family history of coronary artery disease Cerebrovascular accident, Onset Age: 72 Mother Patient's mother is in good health Sibling No problems noted. 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 Gender identity (if verbalized by the patient): Male Sexual Orientation (if Verbalized by the Patient): Straight or Heterosexual Spiritual care concerns: No Agree to blood products: Yes Anes - Eval Final PreProcedure Day of Procedure 01/08/23 12:21 Patient weight: obese Heart: regular rate and rhythm Lungs: clear to auscultation Airway: Mallampati scale class II Neurological: alert and oriented Last oral intake: >/= 8 hours ASA classification: III Emergent: no Anesthetic plan: proceed Anesthesia type and monitoring: general LMA and standard monitoring Results Review: All pre-operative results and documents have been reviewed as part of the pre-operative evaluation. Informed Consent: The patient's anesthetic plan and its attendant
[2023-01-08] MEDS: ceFAZolin 3 GM/D5W 100 ML 100 ML IVPB (13:52)
[2023-01-08] MEDS: BUPivacaine HCL 0.5% 10 ML AMP 30 ML INFILTRATE (14:21)
--- NOTE | 2023-01-08 15:15 | W.PM.PROC2 ---
Procedure Note - Detailed Date of Procedure 01/08/23 Pre-op Diagnosis right knee medial meniscus tear Post-op Diagnosis Same Procedure Performed RIGHT KNEE SCOPE Surgeon Amadeo Urbina MD Anesthesia General Description of Procedure PATIENT WAS TAKEN TO THE OR. RIGHT LEG WAS PREPPED AND DRAPED STERILE. TROCARS WERE PLACED IN THE USUAL FASHION. CAMERA WAS INTRODUCED. THERE WAS CHONDROMALACIA TO THE PATELLA FEMORAL JOINT. THERE WAS A LOT OF SYNOVITIS IN ALL COMPARTMENTS. THE MEDIAL COMPARTMENT SHOWED CHONDROMALACIA TO THE MEDIAL FEMORAL CONDYLE. A SHAVER WAS USED TO PREFORM A CHONDROPLASTY. THERE WAS A COMPLEX MEDIAL MENISCUS TEAR. THE TEAR WAS RESECTED WITH A BITER AND A SHAVER DOWN TO A SMOOTH BASE. ABOUT 30% OF THE MENISCUS WAS REMOVED. THE ACL WAS INTACT. THE LATERAL MENISCUS WAS TORN AT THE ANTERIOR HORN. THE TEAR WAS RESECTED. THE LATERAL COMPARTMENT HAD NO CHONDROMALACIA. A SYNOVECTOMY WAS PREFORMED. THE PATELLO FEMORAL JOINT UNDERWENT CHONDROPLASTY. THERE WAS GRADE 2 CHONDROMALACIA IN PART OF THE TROCHLEA AND PART OF THE PATELLA. SYNOVECTOMY WAS PREFORMED IN THE SUPERIOR MEDIAL COMPARTMENT. THE WOUNDS WERE APPROXIMATED WITH 4.0 NYLON. STERILE DRESSING WAS APPLIED. PATIENT WAS EXTUBATED. Estimated Blood Loss 5 Complications No immediate complications Condition Stable Disposition PACU
[2023-01-08] MEDS: oxyCODONE HCL (*CRX) 5 MG TAB IR PO (16:20)
--- NOTE | 2023-01-08 16:59 | SUR.PHASEII ---
Patient normally takes BP meds in the morning. We had him hold for surgery today.
== END 2023-01-08 17:06 | disposition home or self-care (01) ==
PROVIDERS: PCP Family Medicine; Visit Provider Orthopaedic Surgery
PROC: (CPT 29870; principal; 2023-01-08 13:30)
DX: S83.231A Complex tear of medial meniscus, current injury, right knee, initial encounter (principal); S83.281A Other tear of lateral meniscus, current injury, right knee, initial encounter; X50.0XXA Overexertion from strenuous movement or load, initial encounter; I10 Essential (primary) hypertension; G47.33 Obstructive sleep apnea (adult) (pediatric); E78.5 Hyperlipidemia, unspecified; E66.9 Obesity, unspecified; Z68.36 Body mass index [BMI] 36.0-36.9, adult
CPT/HCPCS: 29880; A9270; J0690; J1100; J2405; J2704; J3010; J7120

== ENCOUNTER 2024-03-08 03:07 | Day surgery (SDC) | payer OTHER, SELFPAY ==
[2024-02-20 09:59] VITALS: BMI 36.3
[2024-03-08 07:33] VITALS: BP 158/84; PULSE 66; RESP 18; TEMP 36.3; O2SAT 100
[2024-03-08] MEDS: LACTATED RINGERS 1,000 ML 150 ML IV CONT (07:42)
--- NOTE | 2024-03-08 07:59 | WPDANESEPPF ---
Anes - Initial Pre Proc Eval Procedure: Operation Date: 03/08/24 09:00 Proposed Procedures p Screening Colonoscopy - Kel Espinosa MD Date/Time: 03/08/24 07:59 Surgeon: Kel Espinosa MD Pre Op Diagnosis: neoplasm screening Patient Data Age: 63 Gender: M Height: 1.85 m Weight: 122.9 kg Last Vital Signs Temp 97.3 F L 03/08/24 07:33 Pulse 66 03/08/24 07:33 Resp 18 03/08/24 07:33 BP 158/84 H 03/08/24 07:33 Pulse Ox 100 03/08/24 07:33 O2 Del Method Room Air 03/08/24 07:33 Allergies Allergy/AdvReac Type Severity Reaction Status Date / Time red dye Allergy Mild lip Verified 03/08/24 07:31 swelling Home Medications Medication Instructions Recorded Confirmed Type lisinopril 10 mg tablet 40 mg PO DAILY 06/27/21 02/20/24 History fexofenadine 180 mg tablet 180 mg PO DAILY 08/22/21 02/20/24 History (Nicole Allergy) fluticasone propionate 50 1 spray intranasal DAILY #3 device 08/22/21 02/20/24 Rx mcg/actuation nasal spray,suspension (Flonase Allergy Relief) meloxicam 15 mg tablet 15 mg PO DAILY #90 tabs 08/03/23 02/20/24 Rx hydrochlorothiazide 12.5 mg tablet 25 mg PO DAILY 11/11/23 02/20/24 History sildenafil 50 mg tablet (Viagra) 50 mg PO DAILY PRN sexual activity 11/11/23 02/20/24 Rx #30 tabs benzonatate 200 mg capsule 200 mg PO TID PRN cough #30 caps 11/19/23 02/20/24 Rx testosterone 10 mg/0.5 5 pump transdermal QAM #180 grams 01/20/24 02/20/24 Rx gram/actuation transdermal gel pump atorvastatin 40 mg tablet 40 mg PO DAILY #90 tabs 03/07/24 03/08/24 Rx Patient hx anesthesia problems: none Family hx anesthesia problems: none Results Review: All pre-operative results and documents have been reviewed as part of the pre-operative evaluation. [facility] Past Medical History Medical History (Updated 11/19/23 @ 15:07 by Nadya Elizabeth APRN) Allergic rhinitis, unspecified Back pain with history of spinal surgery BMI 37.0-37.9, adult Chondrocalcinosis Chronic left-sided low back pain with left-sided sciatica Chronic right hip pain Dry eyes, bilateral Essential hypertension Eustachian tube dysfunction Hypertension Medial meniscus tear Mixed hyperlipidemia NOVA (obstructive sleep apnea) Other intervertebral disc degeneration, lumbar region Otitis externa Right knee DJD Right shoulder pain Rotator cuff tear Screening for prostate cancer Seasonal allergies Serous otitis media Subacromial bursitis 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 Social History Social History Social History: Caffeine-daily Smoking status: Never smoker Second hand tobacco smoke exposure: No Alcohol intake: current Drinks per week: 6 Substance use: never Substance use type: does not use Do You Feel Safe in your Home?: Yes Lack of Transportation: No Lack of Food: Never True Current Housing: I Have Housing Concerned About Future Housing: No Difficulty Paying Gas/Electric Bills: No Difficulty Paying for Meds: No Currently Unemployed: No Education: Master's Degree or Higher Difficulty w/ Childcare or Family Care: No Living arrangements: with family Additional living arrangements comments: Occupation/Education: occupation 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
--- NOTE | 2024-03-08 08:17 | PM.HPGS ---
History of Present Illness History of Present Illness Consent: Risks, benefits, and alternatives have been discussed and questions answered. Patient agrees to proceed with procedure. Chief complaint: neoplasm screening Narrative: Jayy Soares is a 63 year old male here for screening colonoscopy Review of Systems Review of Systems: All systems reviewed & are unremarkable except as noted in HPI and below PMFSH Past Medical History Medical History (Updated 11/19/23 @ 15:07 by Nadya Elizabeth APRN) Allergic rhinitis, unspecified Back pain with history of spinal surgery BMI 37.0-37.9, adult Chondrocalcinosis Chronic left-sided low back pain with left-sided sciatica Chronic right hip pain Dry eyes, bilateral Essential hypertension Eustachian tube dysfunction Hypertension Medial meniscus tear Mixed hyperlipidemia NOVA (obstructive sleep apnea) Other intervertebral disc degeneration, lumbar region Otitis externa Right knee DJD Right shoulder pain Rotator cuff tear Screening for prostate cancer Seasonal allergies Serous otitis media Subacromial bursitis 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 Social History Social History Social History: Caffeine-daily Smoking status: Never smoker Second hand tobacco smoke exposure: No Alcohol intake: current Drinks per week: 6 Substance use: never Substance use type: does not use Do You Feel Safe in your Home?: Yes Lack of Transportation: No Lack of Food: Never True Current Housing: I Have Housing Concerned About Future Housing: No Difficulty Paying Gas/Electric Bills: No Difficulty Paying for Meds: No Currently Unemployed: No Education: Master's Degree or Higher Difficulty w/ Childcare or Family Care: No Living arrangements: with family Additional living arrangements comments: Occupation/Education: occupation 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 Gender identity (if verbalized by the patient): Male Sexual Orientation (if Verbalized by the Patient): Straight or Heterosexual Spiritual care concerns: No Agree to blood products: Yes Meds Home Medications and Allergies Home Medications Medication Instructions Recorded Confirmed Type lisinopril 10 mg tablet 40 mg PO DAILY 06/27/21 02/20/24 History fexofenadine 180 mg tablet 180 mg PO DAILY 08/22/21 02/20/24 History (Nicole Allergy) fluticasone propionate 50 1 spray intranasal DAILY #3 device 08/22/21 02/20/24 Rx mcg/actuation nasal spray,suspension (Flonase Allergy Relief) meloxicam 15 mg tablet 15 mg PO DAILY #90 tabs 08/03/23 02/20/24 Rx hydrochlorothiazide 12.5 mg tablet 25 mg PO DAILY 11/11/23 02/20/24 History sildenafil 50 mg tablet (Viagra) 50 mg PO DAILY PRN sexual activity 11/11/23 02/20/24 Rx #30 tabs benzonatate 200 mg capsule 200 mg PO TID PRN cough #30 caps 11/19/23 02/20/24 Rx testosterone 10 mg/0.5 5 pump transdermal QAM #180 grams 01/20/24 02/20/24 Rx gram/actuation transdermal gel pump atorvastatin 40 mg tablet 40 mg PO DAILY #90 tabs 03/07/24 03/08/24 Rx Allergies Allergy/AdvReac Type Severity Reaction Status Date / Time red dye Allergy Mild lip Verified 03/08/24 07:31 swelling Vital Signs Vital Signs - 24 hr 03/08/24 07:33 Temperature 97.3 F L Pulse Rate 66 Respiratory
[2024-03-08 08:33] VITALS: BP 125/72; PULSE 63; RESP 20; O2SAT 98
[2024-03-08 08:44] VITALS: BP 135/81; PULSE 60; RESP 17; O2SAT 98
[2024-03-08 08:54] VITALS: BP 128/75; PULSE 62; RESP 17; O2SAT 98
== END 2024-03-08 08:56 | disposition home or self-care (01) ==
PROVIDERS: PCP Family Medicine; Visit Provider Internal Medicine Gastroenterology
PROC: 0DJD8ZZ Inspection of Lower Intestinal Tract, Via Natural or Artificial Opening Endoscopic (ICD-10-PCS; CPT 45378; principal; 2024-03-08 09:00)
DX: Z12.11 Encounter for screening for malignant neoplasm of colon (principal); D12.0 Benign neoplasm of cecum; D12.8 Benign neoplasm of rectum; K64.8 Other hemorrhoids; K57.30 Diverticulosis of large intestine without perforation or abscess without bleeding; I10 Essential (primary) hypertension; E78.2 Mixed hyperlipidemia; G47.33 Obstructive sleep apnea (adult) (pediatric); J30.2 Other seasonal allergic rhinitis; M11.20 Other chondrocalcinosis, unspecified site; G89.29 Other chronic pain; M54.42 Lumbago with sciatica, left side; M25.551 Pain in right hip; E66.9 Obesity, unspecified; Z68.35 Body mass index [BMI] 35.0-35.9, adult; Z98.890 Other specified postprocedural states; Z82.49 Family history of ischemic heart disease and other diseases of the circulatory system
CPT/HCPCS: 45380; 45385; 88305; J2704; J7120

== ENCOUNTER 2024-03-10 15:41 | Outpatient (CLI) | payer OTHER, SELFPAY ==
--- NOTE | ~2024-03-10 | XR_ITS ---
EXAMINATION: XR elbow LT 2V DATE: 03/10/2024 16:05 INDICATION: Left elbow pain post fall TECHNIQUE: Anteroposterior and lateral views of the left elbow were obtained. COMPARISON: None. FINDINGS: Alignment is normal. No fracture or joint effusion. Osteoarthritis at the left elbow with moderate un iform joint space narrowing at the radiocapitellar articulation and mild joint space narrowing at the ulnotrochlear and proximal radioulnar articulations. Moderate-sized marginal osteophytes are present . Soft tissues are unremarkable. IMPRESSION: 1. 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 No joint effusion or acute osseous abnormality. Reviewed, dictated and finalized at location A. IMPRESSION: 1. 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 No joint effusion or acute osseou s abnormality.
--- NOTE | ~2024-03-10 | XR_ITS ---
XR knee LT 3V 03/10/2024 16:05 Indication: Left knee pain Procedure: 3 views left knee Comparison: 03/04/2019 Findings: Mild tricompartment osteoarthritis. There is chondrocalcinosis. No fracture, subluxation or dislocation. No foreign bodies. No joint effusion. Impression: 1: Mild tricompartment osteoarthritis. Reviewed, dictated and finalized at location B. Impression: 1: Mild tricompartment osteoarthritis.
== END 2024-03-10 15:42 | disposition home or self-care (01) ==
LOC: ANHIMG 15:42
PROVIDERS: PCP Family Medicine; Visit Provider Physician Assistant Medical
DX: M17.12 Unilateral primary osteoarthritis, left knee (principal); M19.022 Primary osteoarthritis, left elbow
CPT/HCPCS: 73070; 73562

== ENCOUNTER 2024-04-26 09:07 | Outpatient (CLI) | payer OTHER, SELFPAY ==
--- NOTE | ~2024-04-26 | XR_ITS ---
Left elbow Technique: AP, oblique, and lateral views were obtained. Clinical History: Pain COMPARISON: 03/10/2024 Findings: No acute fracture or dislocation is seen. Osseous alignment is anatomic. Moderate osteoarth ritis change of the elbow is stable from prior exam. There is no displacement of the fat pads, and so ft tissues are unremarkable. Impression: Moderate osteoarthritis, unchanged. Reviewed, dictated and finalized at location . Impression: Moderate osteoarthritis, unchanged.
--- NOTE | ~2024-04-26 | XR_ITS ---
Right Hand Technique: PA, oblique, and lateral views were obtained. Clinical History: Fourth digit injury Findings: No acute fracture or dislocation is seen. Osseous alignment is anatomic. Joint spaces are p reserved. Soft tissues are unremarkable. Impression: Unremarkable right hand. Reviewed, dictated and finalized at location . Impression: Unremarkable right hand.
== END 2024-04-26 09:08 | disposition home or self-care (01) ==
PROVIDERS: PCP Family Medicine; Visit Provider Plastic Surgery
DX: M19.022 Primary osteoarthritis, left elbow (principal); W19.XXXD Unspecified fall, subsequent encounter
CPT/HCPCS: 73080; 73130

== ENCOUNTER 2024-05-25 09:57 | Outpatient (CLI) | payer OTHER, SELFPAY ==
--- NOTE | 2024-05-25 11:30 | NEURO_ITS ---
Impression: # Complains of bilateral 4th and 5th finger numbness. Non-diabetic. # Bilateral ulnar neuropathy around the elbows. # No Carpal Tunnel Syndrome # Needle/EMG exam abnormal. Nerve Conduction Studies Anti Sensory Summary Table Stim Site NR Peak (ms) P-T Amp (?V) Site1 Site2 Delta-P (ms) Dist (cm) Soto (m/s) Left Median Anti Sensory (2-3nd Digit) Wrist 3.8 36.9 Wrist 2-3nd Digit 3.8 14.0 37 Wrist 3.9 14.7 Wrist 2-3nd Digit 3.8 14.0 37 Right Median Anti Sensory (2-3nd Digit) Wrist 3.9 15.2 Wrist 2-3nd Digit 3.9 14.0 36 Wrist 4.1 5.4 Wrist 2-3nd Digit 3.9 14.0 36 Left Radial Anti Sensory (Base 1st Digit) Wrist 2.2 10.7 Wrist Base 1st Digit 2.2 0.0 Right Radial Anti Sensory (Base 1st Digit) Wrist 2.9 6.9 Wrist Base 1st Digit 2.9 0.0 Left Ulnar Anti Sensory (5th Digit) Wrist 3.2 21.6 Wrist 5th Digit 3.2 14.0 44 Right Ulnar Anti Sensory (5th Digit) Wrist 2.8 34.6 Wrist 5th Digit 2.8 14.0 50 Motor Summary Table Stim Site NR Onset (ms) O-P Amp (mV) Site1 Site2 Delta-0 (ms) Dist (cm) Soto (m/s) Left Median Motor (Abd Poll Brev) Wrist 3.5 4.9 Elbow Wrist 5.3 29.0 55 Elbow 8.8 4.1 Right Median Motor (Abd Poll Brev) Wrist 3.9 2.4 Elbow Wrist 5.9 30.0 51 Elbow 9.8 1.7 Left Ulnar Motor (Abd Dig Minimi) Wrist 3.0 5.3 A Elbow Wrist 8.1 32.0 40 A Elbow 11.1 3.6 B Elbow Wrist 4.8 23.0 48 B Elbow 7.8 3.3 Right Ulnar Motor (Abd Dig Minimi) Wrist 3.0 5.4 A Elbow Wrist 6.5 32.0 49 A Elbow 9.5 4.6 B Elbow Wrist 4.0 23.0 58 B Elbow 7.0 5.9 F Wave Studies NR F-Lat (ms) L-R F-Lat (ms) Left Median (Mrkrs) (Abd Poll Brev) 33.49 0.75 Right Median (Mrkrs) (Abd Poll Brev) 34.24 0.75 Left Ulnar (Mrkrs) (Abd Dig Min) 33.69 0.80 Right Ulnar (Mrkrs) (Abd Dig Min) 34.48 0.80 EMG Side Muscle Nerve Root Ins Act Fibs Amp Dur Recrt Comment Right 1stDorInt Ulnar C8-T1 Nml Nml Nml >12ms +1 Right Ext Indicis Radial (Post Int) C7-8 Nml Nml Nml Nml Nml Right Ext Digitorum Radial (Post Int) C7-8 Nml Nml Nml Nml Nml Right BrachioRad Radial C5-6 Nml Nml Nml Nml Nml Right PronatorTeres Median C6-7 Nml Nml Nml Nml Nml Right Abd Poll Brev Median C8-T1 Nml Nml Nml Nml Nml Right ABD Dig Min Ulnar C8-T1 Nml Nml Nml >12ms +2 Left 1stDorInt Ulnar C8-T1 Nml Nml Nml >12ms +1 Left Ext Indicis Radial (Post Int) C7-8 Nml Nml Nml Nml Nml Left Ext Digitorum Radial (Post Int) C7-8 Nml Nml Nml Nml Nml Left BrachioRad Radial C5-6 Nml Nml Nml Nml Nml Left PronatorTeres Median C6-7 Nml Nml Nml Nml Nml Left Abd Poll Brev Median C8-T1 Nml Nml Nml Nml Nml Left ABD Dig Min Ulnar C8-T1 Nml Nml Nml >12ms +2 MTDD
== END 2024-05-25 09:58 | disposition home or self-care (01) ==
LOC: ANHNEURO 09:58
PROVIDERS: PCP Family Medicine; Visit Provider Plastic Surgery
DX: G56.23 Lesion of ulnar nerve, bilateral upper limbs (principal)
CPT/HCPCS: 95886; 95911

== ENCOUNTER 2024-06-01 15:15 | Outpatient (RCR) | payer OTHER, SELFPAY ==
--- NOTE | 2024-05-11 15:39 | OTOPEVAL1 ---
Assessment and note entered by LITO Rivera/Bashir, CHT Evaluation Information Assessment Status Evaluation Diagnosis Lesion of ulnar nerve Subjective Information Patient reports falling onto his left elbow ~8 weeks ago. Since then he has been experiencing constant numbness and paresthesia in the left ulnar 2 digits. EMG scheduled for 02/24/24. He also has been experiencing pain in his ulnar 2 digits on the right hand since a dog ran into his hand in Dec. He received an injection to the right hand which he reports has helped. He reports the pain is less painful when using his hand during the day , but he continues to have pain at night that wakes him up at night. Reported Pain Level Pain Score 1/10, right hand 0/10 left hand Assessment OT Clinical Summary Patient referred to OT with dx of an ulnar nerve lesion. He presents with intact sensation and muscle strength, but reports of residual paresthesia in the ulnar 2 digits of the left hand . Issued ROM and nerve flossing HEP today. The right hand demonstrates symptoms consistent with soft tissue sprain for which he has received a cortisone injection for. Issued a compression glove for comfort. Continued follow up indicated to progress HEP as tolerated, modalities, therapeutic exercise, and manual tx to facilitate reduced nerve compression/irritation. Plan of Care Interventions Therapeutic Exercise,Manual Therapy,Therapeutic Activities,Ultrasound,Paraffin OT Services Indicated Yes Treatment Frequency and 1x/week for 5 visits Duration These treatments will address the objective and functional deficits as defined above. The patient will be advanced safely and appropriately in order for the patient to progress towards his/her prior level of function. Additional exercises will be introduced and as well as a comprehensive home exercise program upon discharge, if needed, ?to ensure carryover of functional gains achieved in the clinic. This treatment plan has been reviewed and agreement upon by the patient.
--- NOTE | 2024-05-11 15:40 | OPREHPOC ---
Outpatient Therapy Plan of Care This is a Multidisciplinary Plan of Care that may contain components documented by all disciplines (PT, OT, and ST.) OT Problem 1 OT Problem #1 Knowledge Deficit OT Goal 1 Goal 1. Patient to be independent with instructed materials. Target Visit 5 OT Problem 2 OT Problem #2 Pain OT Goal 1 Goal 1. Patient to report 0/10 pain with ADLs in BUEs. Target Visit 5 OT Problem 3 OT Problem #3 Impaired Flexibility OT Goal 1 Goal 1. Patient to be able to complete ULTT for the ulnar nerve with no distal symptoms. Target Visit 5
--- NOTE | 2024-06-01 15:52 | OTOPDC ---
Assessment and note entered by Marcial Connor, LITO/Bashir, CHT Evaluation Information Assessment Status Discharge Diagnosis Lesion of ulnar nerve Subjective Information Patient reports no changes in the left UE. Reports he is going to go forward with the left cubital tunnel release. Patient reports no changes in the right hand and he continues to wake up at night due to pain. Reported Pain Level Pain Score 0: Self Report Additional Pain Score Comments Patient has no pain at rest. On the right - when he makes a fist he experiences 2/10 pain in the MCP joint of digits IV and V Assessment OT Clinical Summary Patient referred to OT with dx of an ulnar nerve lesion. Therapeutic intervention unfortunately has not shown any benefit. He continues to experience no change in the residual paresthesia in the ulnar 2 digits of the left hand. The right hand demonstrates symptoms consistent with soft tissue sprain. Issued a compression glove for comfort. We discussed ring splints today and he declines them at this time. OT is discharging with goals not met. Plan of Care OT Services Indicated No
== END 2024-06-02 07:57 | disposition home or self-care (01) ==
LOC: ANHGOSHOT 15:15
PROVIDERS: PCP Family Medicine; Visit Provider Plastic Surgery
DX: G56.20 Lesion of ulnar nerve, unspecified upper limb (principal)
CPT/HCPCS: 97110; 97140; 97165

== ENCOUNTER 2024-09-16 14:57 | Outpatient (CLI) | payer OTHER, SELFPAY ==
--- NOTE | ~2024-09-16 | MR_ITS ---
EXAMINATION: MR shoulder LT wo con DATE: 09/16/2024 15:38 INDICATION: Left shoulder pain TECHNIQUE: Magnetic resonance imaging (MRI) of the left shoulder was performed without intravenous co ntrast. Sequences included axial PD-weighted FS FSE, coronal oblique PD-weighted FS FSE, coronal obli que T2-weighted FS FSE, sagittal PD-weighted FS FSE, and sagittal T1-weighted SE. COMPARISON: None. FINDINGS: Coracoacromial arch: The acromion undersurface is flat in morphology (type I). The coracoacromial ligament is normal. Mode rate acromioclavicular osteoarthritis. Rotator cuff: Mild supraspinatus tendinopathy without tear. Infraspinatus and teres minor tendons are normal. Moder ate subscapularis tendinopathy with tear involving the cephalad two thirds of the lesser tuberosity f ootplate of the subscapularis tendon. The inferior third remains intact as does the bursal side of th e more cephalad tendon which remains contiguous with the intact transverse humeral ligament. Normal r otator cuff muscle bulk and signal. Biceps tendon, glenoid labrum and glenohumeral cartilage: Moderate tendinopathy without tear of the long head of the biceps tendon. This is centered at the yohana ction of the intra-articular and extra-articular portions of the tendon which is partially subluxed a cross the medial rim of the intertubercular groove and across a portion of the lesser tuberosity subs capularis tendon tear defect. Glenoid labrum is normal. Glenohumeral cartilage is normal. Fluid: Small amount of fluid at the lung head biceps tendon sheath disproportionate to the physiologic amoun t fluid in the glenohumeral joint space consistent with mild bicipital tenosynovitis. No loose osteoc hondral bodies. Increased fluid signal in the subacromial/subdeltoid bursa consistent with mild bursi tis. Bones: Normal marrow signal with no fracture or pathologic marrow replacing process. Mild subarticular cystl will changes at both sides of the acromioclavicular joint. IMPRESSION: 1. Moderate subscapularis tendinopathy with tear involving the cephalad two thirds of the lesser tube rosity footplate allowing medial subluxation of the long head biceps tendon across the medial rim of the intertubercular groove and across the tear defect 2. Mild bicipital tenosynovitis with moderate tendinopathy without tear of the long head biceps tendo n. 3. Moderate left acromioclavicular osteoarthritis. 4. Mild subacromial/subdeltoid bursitis. Reviewed, dictated and finalized at location A. IMPRESSION: 1. Moderate subscapularis tendinopathy with tear involving the cephalad two thi rds of the lesser tuberosity footplate allowing medial subluxation of the long head biceps tendon across the medial rim of the intertubercular groove and acro ss the tear defect 2. Mild bicipital tenosynovitis with moderate tendinopathy without tear of the long head biceps tendon. 3. Moderate left acromioclavicular osteoarthritis. 4. Mild subacromial/subdeltoid bursitis.
== END 2024-09-16 14:58 | disposition home or self-care (01) ==
LOC: MICIMG 14:58
PROVIDERS: PCP Family Medicine; Visit Provider Nurse Practitioner Family
DX: M77.8 Other enthesopathies, not elsewhere classified (principal); S46.812A Strain of other muscles, fascia and tendons at shoulder and upper arm level, left arm, initial encounter; S43.492A Other sprain of left shoulder joint, initial encounter; X58.XXXA Exposure to other specified factors, initial encounter; M19.012 Primary osteoarthritis, left shoulder; M75.52 Bursitis of left shoulder
CPT/HCPCS: 73221

== ENCOUNTER 2024-12-07 14:24 | Outpatient (CLI) | payer OTHER, SELFPAY ==
--- NOTE | 2024-12-07 14:30 | ECG_ITS ---
Test Date: 2024-12-07 14:42:52 Measurements Intervals [place] Rate: 70 P: 28 DE: 217 QRS: 1 QRSD: 98 T: -3 QT: 332 QTc: 360 Interpretive Statements SINUS RHYTHM WITH FIRST DEGREE AV BLOCK NONSPECIFIC T-WAVE ABNORMALITY No previous ECG available for comparison Electronically Signed On 12-07-2024 15:37:35 [employer] by Karel Ascencio M.D.
[2024-12-07 16:04] LABS: Anion Gap 7 mmol/L (4-12); Blood Urea Nitrogen 24 mg/dL (9-20); Calcium 9.1 mg/dL (8.4-10.2); Carbon Dioxide 29 mmol/L (22-30); Chloride 101 mmol/L (98-107); Estimated Glomerular Filt Rate > 60; Glucose 160 mg/dL (65-110); Potassium 4.3 mmol/L (3.4-5.0); Sodium 137 mmol/L (137-145)
== END 2024-12-07 14:25 | disposition home or self-care (01) ==
LOC: ANHSURGERY 14:29
PROVIDERS: Anesthesiology; PCP Family Medicine; Visit Provider Surgery
DX: E78.2 Mixed hyperlipidemia (principal); Z79.899 Other long term (current) drug therapy; I10 Essential (primary) hypertension; Z01.818 Encounter for other preprocedural examination; I44.0 Atrioventricular block, first degree
CPT/HCPCS: 36415; 80048; 93005

== ENCOUNTER 2024-12-13 01:27 | Day surgery (SDC) | payer OTHER, SELFPAY ==
[2024-12-03 09:39] VITALS: BMI 36.3
--- NOTE | 2024-12-03 09:47 | PC.NURSE ---
Report to the Outpatient Waiting Room, entrance under the green pavilion located off [facility], at time _1000_ on date _[id number]_. Planned Procedure Time: _1200_.? Time changes happen often and if your time is changed the preop area will call you the afternoon before. - You and your visitor will be asked to self-screen and do not enter if you have any COVID symptoms. Please call surgeon if you need to reschedule. - A mask is optional within the hospital at this time. Patients may have clear liquids (water, carbonated beverages, clear teas, apple juice) until 3 hours prior to surgery with a maximum of 20 ounces. - No food from midnight until time of surgery and no smoking. This includes no chewing gum, candy or mints. Take only the following medications with a SIP of water on the morning of surgery: ___Flonase DO NOT STOP ANY OF YOUR OTHER PRESCRIPTION MEDICATIONS PRIOR TO SURGERY EXCEPT THE FOLLOWING Medications to discontinue per physician ___Jayy said he asked already about Meloxicam and was not told to hold it.____ Please no make-up, nail turkmen, hairspray, perfume, deodorant, or body powder the day of surgery.? No jewelry (including any body piercings) or valuables the day of surgery, leave them at home.? Please take a shower or bath the night before, or the morning of, surgery with an antibacterial soap.? Wear comfortable, loose fitting clothing.? - Jewelry must be removed prior to entering the operating room.? Rings and piercings that are not removed may be cut off. - The hospital will not accept responsibility for valuables.? - Please leave all valuables, including medications, at home the day of surgery. If you are going home after surgery, a licensed haul driver must drive you home.? - NO public transportation without another adult if you receive anesthesia. - We recommend that an adult stay with you for 24 hours following discharge. - We also recommend that you do not drive, make important decision, drink alcoholic beverages, or take any drugs that were not prescribed by your health care provider for at least 24 hours after your discharge time. Follow any additional instructions given to you from your surgeon. Telephone instructions given to _Jayy__and asked if any additional questions and then verbalized understanding. Patient advised to call surgeon office or pre surgery nurse liaison [phone] if any additional questions.
[2024-12-13] VITALS (9 sets, daily range): BP systolic 152–178; BP diastolic 81–105; PULSE 68–74; RESP 14–16; TEMP 36.1–36.2; O2SAT 96–100
[2024-12-13] MEDS: LACTATED RINGERS 1,000 ML 30 ML IV CONT ×2 (08:30→13:27)
[2024-12-13] MEDS: KETOROLAC 15 MG/ML VIAL (*BKC) IV PUSH ×2 (10:49→13:17)
[2024-12-13] MEDS: ACETAMINOPHEN 500 MG TABLET 1000 MG PO (10:49)
--- NOTE | 2024-12-13 10:59 | P.PNAN_ITS ---
Anes - Initial Pre Proc Eval Procedure: Operation Date: 12/13/24 12:00 Proposed Procedures p Open Umbilical Hernia Repair with Possible Mesh - Juan Jose Gonzales MD Date/Time: 12/13/24 10:59 Surgeon: Juan Jose Gonzales MD Pre Op Diagnosis: incarcerated Umbilical Hernia (3cm) Patient Data Age: 64 Gender: M Height: 1.85 m Weight: 128.6 kg Last Vital Signs Temp 36.2 C L 12/13/24 10:52 Pulse 73 12/13/24 10:52 Resp 16 12/13/24 10:52 BP 152/96 H 12/13/24 10:52 Pulse Ox 97 12/13/24 10:52 O2 Del Method Room Air 12/13/24 10:52 Allergies Allergy/AdvReac Type Severity Reaction Status Date / Time red dye Allergy Mild lip Verified 12/03/24 09:38 swelling Home Medications ?Medication ?Instructions ?Recorded ?Confirmed ?Type lisinopril 10 mg tablet 40 mg PO DAILY 06/27/21 12/13/24 History fexofenadine 180 mg tablet 180 mg PO DAILY 08/22/21 12/13/24 History (Nicole Allergy) fluticasone propionate 50 1 spray intranasal DAILY #3 device 08/22/21 12/13/24 Rx mcg/actuation nasal spray,suspension (Flonase Allergy Relief) sildenafil 50 mg tablet (Viagra) 50 mg PO DAILY PRN sexual activity 11/11/23 12/03/24 Rx #30 tabs hydrochlorothiazide 25 mg tablet 25 mg PO DAILY #30 tabs 07/09/24 12/13/24 Rx meloxicam 15 mg tablet 15 mg PO DAILY #90 tabs 07/19/24 12/13/24 Rx testosterone 10 mg/0.5 5 pump transdermal QAM #180 grams 10/06/24 12/03/24 Rx gram/actuation transdermal gel pump atorvastatin 40 mg tablet 40 mg PO DAILY #90 tabs 12/03/24 12/13/24 Rx Patient hx anesthesia problems: none Family hx anesthesia problems: none Results Review: All pre-operative results and documents have been reviewed as part of the pre- operative evaluation. [facility] Past Medical History Medical History (Reviewed 11/09/24 @ 10:23 by Nicki Ludwig [facility]) Biceps tendonitis Degenerative joint disease of knee Rotator cuff tendinitis Right knee pain Left shoulder pain Ulnar neuropathy at elbow Contusion of left knee Acute pain of left knee Elbow pain, left Chronic pain of right hand Otitis externa Sudden hearing loss after trauma Effusion of knee joint Medial meniscus tear Chondrocalcinosis Right knee DJD Dry eyes, bilateral Serous otitis media BMI 37.0-37.9, adult Chronic right hip pain Subacromial bursitis Rotator cuff tear Back pain with history of spinal surgery Right shoulder pain Eustachian tube dysfunction Screening for prostate cancer Chronic left-sided low back pain with left-sided sciatica Essential hypertension Mixed hyperlipidemia Other intervertebral disc degeneration, lumbar region Testosterone deficiency Hypertension Allergic rhinitis, unspecified NOVA (obstructive sleep apnea) Seasonal allergies Surgical History Surgical History History of placement of ear tubes History of carpal tunnel release History of foot surgery Family History Family History Father Hypertension Family history of diabetes mellitus in first degree relative Family history of coronary artery disease Cerebrovascular accident, Onset Age: 72 Mother Patient's mother is in good health Sibling No problems noted. Social History Social History Social History: Caffeine-daily Smoking status: Never smoker Second hand tobacco smoke exposure: No Alcohol intake: current Drinks per week: 6 Substance use: never Substance use type: does not use Do You Feel Safe in your Home?: Yes Lack of Transportation: No Lack of Food: Never True Current Housing: I Have Housing Concerned About Future Housing: No Difficulty Paying Gas/Electric Bills: No Difficulty Paying for Meds: No Currently Unemployed: No Education: Master's Degree or Higher Difficulty w/ Childcare or Family Care: No Living arrangements: with family Additional living arrangements comments: Occupation/Education: occupation 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 Gender identity (if verbalized by the patient): Male Sexual Orientation (if Verbalized by the Patient): Straight or Heterosexual Spiritual care concerns: No Agree to blood products: Yes Anes - Eval Final PreProcedure Day of Procedure 12/13/24 10:59 Patient weight: obese Heart: regular rate and rhythm Lungs: clear to auscultation Airway: Mallampati scale class II Neurological: alert and oriented Last oral intake: >/= 8 hours ASA classification: III Emergent: no Anesthetic plan: proceed Anesthesia type and monitoring: general ETT and standard monitoring Results Review: All pre-operative results and documents have been reviewed as part of the pre- operative evaluation. Informed Consent: The patient's anesthetic plan and its attendant risks and benefits were discussed with the patient/family/POA. Questions were solicited and answers provided to the satisfaction of the patient/family/POA.
--- NOTE | 2024-12-13 11:40 | PM.IMHP ---
H&P: HPI History of Present Illness Date/Time: 12/13/24 11:40 Chief Complaint: Umbilical hernia Narrative: Jayy is a 64 y/o male who presents to the office at the request of Rose Reeves NP for an evaluation of an abdominal bulge. Patient reports he has had bulge for approximately 6 months and it seems to be increasing in size. Patient states it is reducible and denies any pain associated with bulge. He tolerates a normal diet and has regular BM's. Review of Systems Review of Systems: The remainder of the review of systems to include constitutional, HEENT, cardiovascular, respiratory, GI, , integumentary, musculoskeletal, endocrine, immunologic, hematologic, psychiatric, and neurologic are all negative except for which is mentioned above in the HPI. [facility] Past Medical History Medical History Biceps tendonitis Degenerative joint disease of knee Rotator cuff tendinitis Right knee pain Left shoulder pain Ulnar neuropathy at elbow Contusion of left knee Acute pain of left knee Elbow pain, left Chronic pain of right hand Otitis externa Sudden hearing loss after trauma Effusion of knee joint Medial meniscus tear Chondrocalcinosis Right knee DJD Dry eyes, bilateral Serous otitis media BMI 37.0-37.9, adult Chronic right hip pain Subacromial bursitis Rotator cuff tear Back pain with history of spinal surgery Right shoulder pain Eustachian tube dysfunction Screening for prostate cancer Chronic left-sided low back pain with left-sided sciatica Essential hypertension Mixed hyperlipidemia Other intervertebral disc degeneration, lumbar region Testosterone deficiency Hypertension Allergic rhinitis, unspecified NOVA (obstructive sleep apnea) Seasonal allergies Surgical History Surgical History History of placement of ear tubes History of carpal tunnel release History of foot surgery Family History Family History Father Hypertension Family history of diabetes mellitus in first degree relative Family history of coronary artery disease Cerebrovascular accident, Onset Age: 72 Mother Patient's mother is in good health Sibling No problems noted. Social History Social History Social History: Caffeine-daily Smoking status: Never smoker Second hand tobacco smoke exposure: No Alcohol intake: current Drinks per week: 6 Substance use: never Substance use type: does not use Do You Feel Safe in your Home?: Yes Lack of Transportation: No Lack of Food: Never True Current Housing: I Have Housing Concerned About Future Housing: No Difficulty Paying Gas/Electric Bills: No Difficulty Paying for Meds: No Currently Unemployed: No Education: Master's Degree or Higher Difficulty w/ Childcare or Family Care: No Living arrangements: with family Additional living arrangements comments: Occupation/Education: occupation 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 Gender identity (if verbalized by the patient): Male Sexual Orientation (if Verbalized by the Patient): Straight or Heterosexual Spiritual care concerns: No Agree to blood products: Yes Meds Home Medications and Allergies Home Medications ?Medication ?Instructions ?Recorded ?Confirmed ?Type lisinopril 10 mg tablet 40 mg PO DAILY 06/27/21 12/13/24 History fexofenadine 180 mg tablet 180 mg PO DAILY 08/22/21 12/13/24 History (Nicole Allergy) fluticasone propionate 50 1 spray intranasal DAILY #3 device 08/22/21 12/13/24 Rx mcg/actuation nasal spray,suspension (Flonase Allergy Relief) sildenafil 50 mg tablet (Viagra) 50 mg PO DAILY PRN sexual activity 11/11/23 12/03/24 Rx #30 tabs hydrochlorothiazide 25 mg tablet 25 mg PO DAILY #30 tabs 07/09/24 12/13/24 Rx meloxicam 15 mg tablet 15 mg PO DAILY #90 tabs 07/19/24 12/13/24 Rx testosterone 10 mg/0.5 5 pump transdermal QAM #180 grams 10/06/24 12/03/24 Rx gram/actuation transdermal gel pump atorvastatin 40 mg tablet 40 mg PO DAILY #90 tabs 12/03/24 12/13/24 Rx Allergies Allergy/AdvReac Type Severity Reaction Status Date / Time red dye Allergy Mild lip Verified 12/03/24 09:38 swelling Vital Signs Vital Signs - 24 hr 12/13/24 10:52 Temperature 36.2 C L Pulse Rate 73 Respiratory Rate 16 Blood Pressure 152/96 H Pulse Oximetry 97 Oxygen Delivery Room Air Exam Const: General: comfortable and no acute distress HENMT: Ears: TM's normal bilaterally Face/Nose/Sinus: Normal nares present Mouth: Yes moist mucous membranes Eyes: General: appearance normal, both eyes and all related structures Sclera: sclerae normal Pupils: Equal, round and reactive pupils present EOM: EOMs intact bilaterally Neck: Neck: supple and no JVD Resp: Effort & Inspection: normal respiratory effort Auscultation: clear to auscultation bilaterally Cardio: Rate: regular rate Rhythm: regular rhythm GI: Other: Abdomen soft, non tender, non distended. Small incarcerated umbilical hernia, defect 1-1.5cm. Likely preperitoneal fat or omentum in hernia. Mild epigastric associated diastasis Skin: General skin exam: normal color and no rashes or lesions noted Neuro: Speech: normal speech Motor exam (neuro): 5/5 motor strength present throughout Sensory Exam: normal sensation Extrem: General: normal to inspection Psych: Mental Status: mental status grossly normal Affect: normal affect Assessment and Plan Assessment and plan (1) Incarcerated umbilical hernia: Code(s): K42.0 - Umbilical hernia with obstruction, without gangrene Status: Acute Assessment and Plan: I have reviewed office notes from Rose Reeves NP prior to patient visit today. Based on clinical exam, I am recommending an open umbilical hernia repair, possible mesh, to be done under general anesthesia as an outpatient. The procedure was discussed in detail including general description, and usual course of recovery. Risks of recurrence, infection, postop bleeding, prolonged postop pain, possible need to return to surgery were discussed as well. All questions were answered. Patient would like to proceed. Follow-up 2 weeks postoperatively.
--- NOTE | 2024-12-13 11:43 | WPDHPUPDATE1 ---
History and Physical Update Update Date/Time: 12/13/24 11:43 History and Physical has been reviewed, including an updated exam of the patient. There are NO changes in the patient's condition. Risks, benefits, and alternatives have been discussed and questions answered. Patient agrees to proceed with procedure.
[2024-12-13] MEDS: ceFAZolin 3 GM/D5W 100 ML 100 ML IVPB (12:10)
[2024-12-13] MEDS: LIDO 1%/EPINEPHRINE 1:100,000 20 ML VIAL 30 ML INFILTRATE (12:26)
[2024-12-13] MEDS: BUPivacaine HCL 0.5% PF 30 ML VIAL INFILTRATE (12:27)
--- NOTE | 2024-12-13 13:35 | W.PM.PROC2 ---
Procedure Note - Detailed Date of Procedure 12/13/24 Pre-op Diagnosis Incarcerated umbilical hernia Post-op Diagnosis Same Procedure Performed Open incarcerated umbilical hernia repair without mesh. Surgeon Juan Jose Gonzales MD Nutrition Representative Duran Schulte [employer]DER Anesthesia General Indications Patient is 64-year-old gentleman who presented with a bulge in his umbilical region. It was non reducible. He was having. He presents now for repair of an incarcerated umbilical hernia. Findings Patient has small amount of omentum incarcerated within the small hernia sac. The umbilical defect measured approximately 1.5cm in diameter. The omentum was reduced and then the defect was closed primarily with interrupted permanent sutures without mesh. There was no tension on the closure. Description of Procedure After informed consent was obtained patient brought to the operating room was placed supine position and general LMA anesthesia was administered. The abdomen was then prepped and draped usual sterile fashion. A time-out was then performed correctly identifying the patient as well as procedure to be performed. He was given perioperative IV antibiotics. I then made a small curved incision just along the lower edge of the umbilicus. Dissection carried sharply down through the dermis skin with a scalpel the electrocautery was used to dissect down along the hernia sac. The service hernia sac with blunt dissection with a Karen clamp. The dermis of the overlying umbilicus was then disconnected from the hernia sac utilizing electrocautery. A 1 point a small was made through the umbilical skin. I then opened the hernia sac to identify incarcerated omentum which was totally viable within the hernia sac. I then resected the attenuated fascia and hernia sac at the the defect. I then reduced the viable omentum back through the defect back into the abdomen. The defect measures approximately 1.5cm in diameter. Hemostasis was good and so I then closed the defect primarily without the use of any mesh. Interrupted 0 Ethibond sutures were used to close the defect getting approximately 1cm good tissue on either side of the fascia. The defect closed well without any tension. I then irrigated out the incision sterile saline solution hemostasis was excellent. I then injected 1% lidocaine mixed with 0.5% Marcaine with some epinephrine around the closed defect in fascia and the subcutaneous tissues for local anesthetic effect. I then close the small defect I made in the umbilical skin utilizing a 4-0 Monocryl suture. The umbilical stalk was then recreated by tacking down the umbilical skin to the deeper fascia utilizing interrupted 3-0 Vicryl suture. The subcutaneous tissues were then closed utilizing interrupted 2-0 Vicryl sutures. This is then followed by a layer of interrupted 3-0 Vicryl sutures placed in the deep dermis. The skin edges were then approximated utilizing a running subcuticular 4-0 Monocryl suture. Incision was then cleaned the skin glue was applied. No abdominal binder was placed. The patient tolerated the procedure well no complications. All sponges, needles, and instrument counts were correct at the end procedure. EBL was _10__cc. The patient was awakened and taken to recovery in stable and satisfactory condition. Implants None Estimated Blood Loss 10 Drains No Packing No Pathology None sent Complications No immediate complications Condition Stable Disposition PACU [facility] Billing Surgery - Charge Forward: Surgery Billing
--- NOTE | 2024-12-13 14:14 | SUR.PHASEI ---
Dr. Saini aware of elevated BP. Instruct patient to go home and resume BP meds.
[2024-12-13] MEDS: oxyCODONE HCL (*CRX) 5 MG TAB IR PO (14:43)
--- OUTSIDE RECORDS SUMMARY | 2024-12-16 11:11 | XMS_ITS | Encounter Summary ---
Author Organization [facility] Address [address] [place] [address] Care Team Providers Care Utility Spray Operator Name Role Phone Mauri De León MD Primary Care Provider [phone] Reason for Visit * Reason Onset Date Comments Nurse Only 03/04/2024 Encounter Details Date Type Department Care Team (Late Contact Info) Description 03/04/2024 Telephone [facility] - Centralized Scheduling [address] [place] [address] Mauro Calderon MD [address] [place] [address] Nurse Only Social History Tobacco Use Types Packs/Day Years Used Date Smoking Tobacco: Never Smokeless Tobacco: Never Alcohol Use Standard Drinks/Week Comments Yes 0 (1 standard drink = 0.6 oz pur e alcohol) Sex and Gender Information Value Date Recorded Sex Assigned at Not on file Gender Identity Not on file Sexual Orientation Not on file documented as of this encounter Miscellaneous Notes * Telephone Encounter - Agustina Raygoza - 03/04/2024 10:28 AM CDT Patient called, his insurance is needing a code number for his allergy inj cbn [phone] documented in this encounter Plan of Treatment Upcoming Encounters Date Type Department Care Team (Late Contact Info) Description 03/09/2025 1:00 PM CDT Office Visit [facility] [facility], [place] [address] Mauro Calderon MD [address] [place] [address] [place] [address] documented as of this encounter Visit Diagnoses Not on filedocumented in this encounter Care Teams Utility Spray Operator Relationship Specialty Start Date End Date Mauri De León MD [address] [place] [id number] PCP - General 03/29/18 documented as of this encounter
--- OUTSIDE RECORDS SUMMARY | 2024-12-16 11:11 | XMS_ITS | Patient Health Summary ---
Author Organization [facility] Spor Address [address] [place] [address] Care Team Providers Care Spiritual Care Coordinator Name Role Phone Mauri De León MD Primary Care Provider [phone] Note from [facility],non-owned Affiliates and Associated Physician Practices is amultiple site organization consisting of ambulatory clinics and hospital sitesin [place], [place], [place] and [place]. This disclosure is being madepursuant to the Care Everywhere program and may not contain all information available regarding this patient. Last updated 18.[facility] Allergies * Red Dye(Swelling) Medications * Be aware that medications may not be up to date on this document. Alwaysverify current medications with the patient. * fluticasone propionate (FLONASE) 50 MCG/ACT nasal spray [place] 1 (one) spray into each nostril once daily * acetaminophen (TYLENOL) 325 MG tablet Take 325 mg by mouth every 4 hours as needed. Maximum allowable Acetaminophen amount = 4 Grams (4000 mg) / 24 hours. * cyclobenzaprine (FLEXERIL) 10 MG tablet Take 10 mg by mouth at bedtime. * ibuprofen (MOTRIN) 200 MG tablet Take 200 mg by mouth every 6 hours as needed. * lisinopril-hydroCHLOROthiazide (PRINZIDE; ZESTORETIC) 10-12.5 MG tablet Take 1 (one) tablet by mouth once daily Reasons: High Blood Pressure Disorder * atorvastatin (LIPITOR) 20 MG tablet Take 2 (two) tablets by mouth at bedtime Reasons: Elevation of Both Cholesterol and Triglycerides in Blood * Testosterone 10 MG/ACT (2%) * meloxicam (MOBIC) 15 MG tablet Take 1 (one) tablet by mouth once daily Reasons: back pain * fexofenadine (REJI) 60 MG tablet Take 1 (one) tablet by mouth 2 times daily Reasons: Hayfever * EPINEPHrine (Epipen) 0.3 MG/0.3ML auto-injector pen(Started 12/12/2023) Inject 0.3 mL into muscle once as needed for Anaphylaxis * Syringe/Needle, Disp, (SYRINGE 3CC/25GX5/8 ) 25G X 5/8 3 ML MISC(Started 03/25/2024) For use with Allergy serum as directed 3 refills by 03/25/2025 Active Problems Problem Noted Date Diagnosed Date ETD (Eustachian tube dysfunction), bilateral Allergic rhinitis due to pollen 09/11/2023 Hyperlipidemia 09/11/2023 09/11/2023 Sensorineural hearing loss 07/10/202309/11 Chronic otitis media 07/04/2023 09/11/2023 Lumbar spondylosis 06/07/2018 Left foot drop 06/07/2018 Essential hypertension 01/27/2018 3 Immunizations * FLU, HISTORIC VACCINE(Given 09/29/2013) * INFLUENZA VACCINE, CELL CULTURE, QUADR. (FLUCELVAX QUADRIVALENT; 6MO+) (CCIIV4)(Given 09/01/2023, 09/02/2022, 09/01/2021, 07/22/2020, 07/21/2019, 10/05/2018, 09/18/2017) * Zoster Hzv Vacc Recombinant Inj Im(Given 10/21/2020, 07/22/2020) Social History Tobacco Use Types Packs/Day Years Used Date Smoking Tobacco: Never Smokeless Tobacco: Never Tobacco Cessation:Counseling Given: Not Answered Alcohol Use Standard Drinks/Week Comments Yes 0 (1 standard drink = 0.6 oz pur e alcohol) Sex and Gender Information Value Date Recorded Sex Assigned at Not on file Gender Identity Not on file Sexual Orientation Not on file Last Filed Vital Signs Vital Sign Reading Time Taken Comments Blood Pressure 161/90 03/10/2024 1:09 PM CDT Pulse 67 03/10/2024 1:09 PM CDT Temperature 36.7 ??C (98.1 ??F) 02/24/2018 2:44 PM CD T Respiratory Rate 18 06/02/2018 3:18 PM CDT Oxygen Saturation 95% 03/10/2024 1:09 PM CDT Inhaled Oxygen Concentration - - Weight 127.5 kg (281 lb) 03/10/2024 1:09 PM CDT Height 185.4 cm (6' 1 ) 03/10/2024 1:09 PM CDT Body Mass Index 37.07 03/10/2024 1:09 PM CDT Procedures * XR LUMBAR SPINE 2 OR 3VW(Performed 02/24/2018) * CT LUMBAR SPINE W CONTRAST(Performed 02/11/2018) Performed for Spinal stenosis, lumbar region, with neurogenic claudication * FL MYELOGRAM LUMBAR(Performed 02/11/2018) Performed for Spinal stenosis, lumbar region, with neurogenic claudication * PT PTT PANEL(Performed 02/11/2018) Performed for Spinal stenosis, lumbar region, with neurogenic claudication * CBC W AUTO DIFFERENTIAL(Performed 02/11/2018) Performed for Spinal stenosis, lumbar region, with neurogenic claudication * DERMATOPATHOLOGY(Performed 12/30/2014) * CARDIAC EKG ORDER(Performed 12/06/2011) * FL ZOEY SURGERY LESS 60 MIN(Performed 12/05/2011) Performed for Back pain * TYPE + SCREEN PANEL(Performed 12/05/2011) * XR CHEST 2VW(Performed 11/29/2011) Performed for Preoperative examination, unspecified * COMPREHENSIVE METABOLIC PANEL(Performed 11/29/2011) Performed for Preoperative examination, unspecified * CBC W AUTO DIFFERENTIAL(Performed 11/29/2011) Performed for Preoperative examination, unspecified * PT PTT PANEL(Performed 11/29/2011) Performed for Preoperative examination, unspecified * URINALYSIS REFLEX TO MICROSCOPIC NO CULTURE(Performed 11/29/2011) Performed for Preoperative examination, unspecified * MRI LUMBAR SPINE WWO CONTRAST(Performed 10/28/2011) Performed for Sciatica * BUN+CREATININE BLOOD PNL - POINT OF CARE(Performed 10/28/2011) Performed for Sciatica * CARDIAC EKG ORDER(Performed 10/15/2010) * XR CHEST 2VW(Performed 10/05/2010) Performed for Unspecified pre-operative examination * TYPE + SCREEN PANEL(Performed 10/05/2010) Performed for Unspecified pre-operative examination * URINALYSIS REFLEX TO MICROSCOPIC NO CULTURE(Performed 10/05/2010) Performed for Unspecified pre-operative examination * CBC W AUTO DIFFERENTIAL(Performed 10/05/2010) Performed for Unspecified pre-operative examination * PT PTT PANEL(Performed 10/05/2010) Performed for Unspecified pre-operative examination * BASIC METABOLIC PANEL (CALCIUM TOTAL)(Performed 10/05/2010) Performed for Unspecified pre-operative examination * EKG 12-LEAD(Performed 10/05/2010) Performed for Unspecified pre-operative examination * MRI LUMBAR SPINE WWO CONTRAST(Performed 09/18/2010) Performed for Herniated lumbar intervertebral disc Results * XR LUMBAR SPINE 2 OR 3VW (02/24/2018 2:32 PM CDT) Anatomical Region Laterality Modality Spine Other Impressions 02/24/2018 3:01 PM CDT IMPRESSION: Mild to moderate degenerative changes, greatest at L5-S1. This report was electronically signed by SALVADOR HAAS MD ??on 02/24/2018 3:01 PM . Narrative 02/24/2018 3:01 PM CDT Exam: ??XR SPINE LUMBAR 2 OR 3 VW History: ??chronic pain Comparison: None. Findings: The lumbar lordosis is normal. No fracture or subluxation is seen. Moderate intervertebral disc space narrowing is present at L5-S1, and mild narrowing is present at L4-5 and L1-2. Endplate degenerative sclerosis and osteophyte formation is noted at these levels. There is facet osteoarthritis in the lower lumbar spine. Procedure Note Salvador Haas MD - 02/28/2018 Exam: XR SPINE LUMBAR 2 OR 3 VW History: chronic pain Comparison: None. Findings: The lumbar lordosis is normal. No fracture or subluxation is seen.Moderate intervertebral disc space narrowing is present at L5-S1, and mildnarrowing is present at L4-5 and L1-2. Endplate degenerative sclerosis andosteophyte formation is noted at these levels. There is facet osteoarthritis in the lower lumbar spine. IMPRESSION IMPRESSION: Mild to moderate degenerative changes, greatest at L5-S1. This report was electronically signed by SALVADOR HAAS MD on 02/24/20183:01 PM . Ulices Reich MD DIAGNOSTIC IMAGING O RDERABLES * CT LUMBAR SPINE W CONTRAST (02/11/2018 11:04 AM CDT) Anatomical Region Laterality Modality Spine Computed Tomogra phy 02/11/2018 12:4 9 PM CDT Impressions 02/11/2018 1:26 PM CDT Multilevel degenerative disc and joint disease as described above, most severe at L4-L5 and L5-S1. Edited by Anayeli Madrigal on 02/11/2018 1:19 PM Narrative 02/11/2018 1:26 PM CDT EXAMINATION: Computed tomography (CT) of the lumbar spine with contrast HISTORY: Spinal stenosis, lumbar region with neurogenic claudication. TECHNIQUE: CT of the lumbar spine was performed with contrast according to standard protocol after the administration of myelographic contrast. FINDINGS: No prior exams are available for comparison. The alignment is normal. Vertebral bodies are normal in height without evidence of compression fractures. There is multilevel degenerative disc and joint disease. There is vacuum disc phenomenon seen at L4-L5 and L5-S1. No soft tissue abnormality is identified. T12-L1: Left paracentral disc bulge is seen resulting in mild central canal stenosis at this level. This asymmetric disc bulge also encroaches on the left lateral recess at this level. No definite neural foraminal stenosis is seen. L1-L2: There is mild left paracentral disc bulge. There is no central canal stenosis. There is no facet osteoarthritis. There is mild bilateral neural foraminal stenosis. L2-L3: There is no disc bulge. There is no central canal stenosis. There is no facet osteoarthritis. There is no neural foraminal stenosis. L3-L4: There is no disc bulge. There is mild central canal stenosis. There is mild bilateral facet osteoarthritis. There is mild to moderate left neural foraminal stenosis. L4-L5: There is left paracentral disc bulge at this level with ligamentum flavum infolding and mild to moderate central canal stenosis. There is moderate bilateral facet osteoarthritis likely resulting in moderate to severe left neural foraminal stenosis and moderate right neural foraminal stenosis. There is also distortion of the thecal sac secondary to this disc bulge. L5-S1: There is diffuse posterior disc bulge. There is mild central canal stenosis. There is mild right and moderate left facet osteoarthritis. There is moderate to severe bilateral neural foraminal stenosis. Procedure Note Isreal Aguirre MD - 02/11/2018 EXAMINATION: Computed tomography (CT) of the lumbar spine with contrast HISTORY: Spinal stenosis, lumbar region with neurogenic claudication. TECHNIQUE: CT of the lumbar spine was performed with contrast according to standard protocol after the administration of myelographic contrast. FINDINGS: No prior exams are available for comparison. The alignment is normal. Vertebral bodies are normal in height without evidence of compression fractures. There is multilevel degenerative disc and joint disease. There is vacuum disc phenomenon seen at L4-L5 and L5-S1. No soft tissue abnormality is identified. T12-L1: Left paracentral disc bulge is seen resulting in mild central canal stenosis at this level. This asymmetric disc bulge also encroaches on the left lateral recess at this level. No definite neural foraminal stenosis is seen. L1-L2: There is mild left paracentral disc bulge. There is no central canal stenosis. There is no facet osteoarthritis. There is mild bilateral neural foraminal stenosis. L2-L3: There is no disc bulge. There is no central canal stenosis. There is no facet osteoarthritis. There is no neural foraminal stenosis. L3-L4: There is no disc bulge. There is mild central canal stenosis. There is mild bilateral facet osteoarthritis. There is mild to moderate left neural foraminal stenosis. L4-L5: There is left paracentral disc bulge at this level with ligamentum flavum infolding and mild to moderate central canal stenosis. There is moderate bilateral facet osteoarthritis likely resulting in moderate to severe left neural foraminal stenosis and moderate right neural foraminal stenosis. There is also distortion of the thecal sac secondary to this disc bulge. L5-S1: There is diffuse posterior disc bulge. There is mild central canal stenosis. There is mild right and moderate left facet osteoarthritis. There is moderate to severe bilateral neural foraminal stenosis. IMPRESSION Multilevel degenerative disc and joint disease as described above, most severe at L4-L5 and L5-S1. Edited by Anayeli Madrigal on 02/11/2018 1:19 PM Ulices Reich MD CT ORDERABLES * FL MYELOGRAM LUMBAR (02/11/2018 10:55 AM CDT) Anatomical Region Laterality Modality Spine X-Ray Angiograph y Cerebral spinal fluid 02/11/2018 10:59 AM CDT Impressions 02/11/2018 12:11 PM CDT 1. Successful lumbar myelogram under fluoroscopic guidance at L3-4. Please see the separate report from the subsequently performed CT for additional findings. Dictated by Misha Ford on 02/11/2018 11:04 AM I, Pantera Resendez, have personally reviewed the images and I agree with this report. Narrative 02/11/2018 12:11 PM CDT EXAMINATION: Lumbar puncture (LP) under fluoroscopic guidance for lumbar myelogram HISTORY: 57-year-old male with recurrent low back pain and lumbar radiculopathy status post three back surgeries. TECHNIQUE: The risks and benefits of the lumbar puncture and myelography including, but not limited to, infection, bleeding, seizure, epidural hematoma, post spinal headache, cerebrospinal fluid (CSF) leak requiring blood patch procedure, nausea, vomiting, irritation or damage to nerves causing pain or permanent injury were discussed with with the patient. After alternatives were discussed and the opportunity to ask questions was provided, the patient acknowledged understanding, gave verbal and written consent, and wished to proceed. Attending physician: Dr. Edouard was present for the bills portions of this procedure. The L3-4 level was localized with fluoroscopy. The skin overlying this level was then sterilely prepped, draped, and infiltrated with 1% lidocaine for local anesthesia. Under intermittent fluoroscopic guidance, a 22 gauge 5 inch needle was inserted into the thecal sac at this level and 15 ml of Omnipaque 180 contrast was instilled. Prone fluoroscopic images of the lumbar spine were obtained and then the patient was taken to the CT scanner where CT of the lumbar spine was performed. The patient tolerated the procedure well. The patient was then transferred to the family member caretaker unit for further observation and at least 3 hours of bedrest. FLUOROSCOPY TIME: 0.43 minutes FINDINGS: Fluoroscopic images confirm intrathecal injection with contrast flowing freely in the intradural-extramedullary space. The remainder of the findings are fully characterized on the subsequently performed CT. Please see the report below for further details. There are 12 paired ribs and 5 nonrib-bearing lumbar vertebral bodies. Note that the 12th ribs are small. Procedure Note Pantera Resendez MD - 02/11/2018 EXAMINATION: Lumbar puncture (LP) under fluoroscopic guidance for lumbar myelogram HISTORY: 57-year-old male with recurrent low back pain and lumbar radiculopathy status post three back surgeries. TECHNIQUE: The risks and benefits of the lumbar puncture and myelography including, but not limited to, infection, bleeding, seizure, epidural hematoma, post spinal headache, cerebrospinal fluid (CSF) leak requiring blood patch procedure, nausea, vomiting, irritation or damage to nerves causing pain or permanent injury were discussed with with the patient. After alternatives were discussed and the opportunity to ask questions was provided, the patient acknowledged understanding, gave verbal and written consent, and wished to proceed. Attending physician: Dr. Edouard was present for the bills portions of this procedure. The L3-4 level was localized with fluoroscopy. The skin overlying this level was then sterilely prepped, draped, and infiltrated with 1% lidocaine for local anesthesia. Under intermittent fluoroscopic guidance, a 22 gauge 5 inch needle was inserted into the thecal sac at this level and 15 ml of Omnipaque 180 contrast was instilled. Prone fluoroscopic images of the lumbar spine were obtained and then the patient was taken to the CT scanner where CT of the lumbar spine was performed. The patient tolerated the procedure well. The patient was then transferred to the family member caretaker unit for further observation and at least 3 hours of bedrest. FLUOROSCOPY TIME: 0.43 minutes FINDINGS: Fluoroscopic images confirm intrathecal injection with contrast flowing freely in the intradural-extramedullary space. The remainder of the findings are fully characterized on the subsequently performed CT. Please see the report below for further details. There are 12 paired ribs and 5 nonrib-bearing lumbar vertebral bodies. Note that the 12th ribs are small. IMPRESSION 1. Successful lumbar myelogram under fluoroscopic guidance at L3-4. Please see the separate report from the subsequently performed CT for additional findings. Dictated by Misha Ford on 02/11/2018 11:04 AM I, Pantera Resendez, have personally reviewed the images and I agree with this report. Ulices Reich MD FLUOROSCOPY ORDERABL ES * PT PTT PANEL (02/11/2018 9:35 AM CDT) Only the most recent of3 resultswithin the time period is included. PT 9.8 9.5 - 11.6 sec 02/11/2018 10:23 AM CDT [facility] INR 0.9 0.9 - 1.1 02/11/2018 10:23 AM CDT [facility] PTT 23.5 21.0 - 32.0 sec 02/11/2018 10:23 AM CDT [facility] Blood BLOOD SPECIMEN / Unknown Venipuncture / Unknown 02/11/2018 9:35 AM CDT 02/11/2018 9:45 AM CDT [facility] - 02/11/2018 10:23 AM CDT Conventional Warfarin Anticoagulant Therapy: INR Reference Range: ??2.0-3.0 Intensive Warfarin Anticoagulant Therapy: INR Reference Range: ? 2.5-3.5 Heparin Therapeutic Range for PTT: 47.7 - 68.6 seconds. Ulices Reich MD LAB - COAGULATION OR DERABLES Performing Organization Address City/State/[facility] Co de Phone Number [facility] [address] [place] [address] * (ABNORMAL) CBC W AUTO DIFFERENTIAL (02/11/2018 9:35 AM CDT) Only the most recent of3 resultswithin the time period is included. WBC 6.0 4.4 - 10.7 x10E9/L 02/11/2018 9:55 AM CDT [facility] WBC Corrected x10E9/L 02/11/2018 9:55 AM CDT [facility] RBC 4.91 3.80 - 5.40 x10E12/L 02/11/2018 9:55 AM CDT [facility] Hemoglobin 15.6 12.0 - 17.6 gm/dL 02/11/2018 9:55 AM CDT [facility] Hematocrit 45.0 35.2 - 51.7 % 02/11/2018 9:55 AM CDT [facility] MCV 91.6 80.7 - 98.3 fl 02/11/2018 9:55 AM CDT [facility] MCH 31.8 26.7 - 34.0 pg 02/11/2018 9:55 AM CDT [facility] MCHC 34.7 30.8 - 35.9 gm/dL 02/11/2018 9:55 AM CDT [facility] Platelet Count 252 153 - 416 x10E9/L 02/11/2018 9:55 AM CDT [facility] RDW-CV 11.8(L) 12.1 - 14.9 % 02/11/2018 9:55 AM CDT [facility] MPV 10.5 9.4 - 12.9 fl 02/11/2018 9:55 AM CDT [facility] Neutrophils % 64.7 44.0 - 73.0 % 02/11/2018 9:55 AM CDT [facility] Lymphocytes % 25.9 20.0 - 43.0 % 02/11/2018 9:55 AM CDT [facility] Monocytes % 8.1 5.0 - 13.0 % 02/11/2018 9:55 AM CDT [facility] Eosinophils % 0.8 0.0 - 6.0 % 02/11/2018 9:55 AM CDT [facility] Basophils % 0.3 0.0 - 2.0 % 02/11/2018 9:55 AM CDT [facility] Immature Granulocytes 0.2 0 - 1 % 02/11/2018 9:55 AM CDT [facility] Neutrophil Absolute 3.89 2.01 - 7.14 x10E9/L 02/11/2018 9:55 AM CDT [facility] Lymphocytes Absolute 1.56 1.07 - 3.94 x10E9/L 02/11/2018 9:55 AM CDT [facility] Monocytes Absolute 0.49 0.26 - 1.07 x10E9/L 02/11/2018 9:55 AM CDT [facility] Eosinophils Absolute 0.05 0 - 0.47 x10E9/L 02/11/2018 9:55 AM CDT [facility] Basophils Absolute 0.02 0 - 0.08 x10E9/L 02/11/2018 9:55 AM T [facility] Immature Granulocytes Absolute 0.01 0.00 - 0.06 x10E9/L 02/11/2018 9:55 AM CDT [facility] nRBC Auto 0 /100 WBC 02/11/2018 9:55 AM [facility] Blood BLOOD SPECIMEN / Unknown Venipuncture / Unknown 02/11/2018 9:35 AM CDT 02/11/2018 9:45 AM CDT Ulices Reich MD LAB - HEMATOLOGY ORD ERABLES Performing Organization Address City/[facility] Co de Phone Number [facility] [address] [place] [address] * PATHOLOGY TISSUE FOR DERMATOLOGY (12/30/2014 12:00 AM EXECUTIVE STAFF ASSISTANT) Result CASE: [id number] PATIENT: JEMAL SOARES PATHOLOGIC DIAGNOSIS: A. 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 ??Left arm distal: INTRADERMAL MELANOCYTIC NEVUS C. ??Back: INTRADERMAL MELANOCYTIC NEVUS WITH CONGENITAL FEATURES CLINICAL DATA: A-C: Changing, enlarging. GROSS DESCRIPTION: A: Received is one formalin filled container labeled with the patient's name and designated left arm. The specimen consists of a punch biopsy measuring [id number]. Jar 0. B: Received is one formalin filled container labeled with the patient's name and designated left arm distal. The specimen consists of a punch biopsy measuring [id number]. Jar 0. C: Received is one formalin filled container labeled with the patient's name and designated back. The specimen consists of a [id number] piece of skin. The margin is inked green. The specimen is bisected lengthwise and submitted in 1 cassette. Jar 0. MICROSCOPIC DESCRIPTION: SPECIMEN ??A: There are nests of melanocytes within the dermis. Some of these melanocytes are concentrated around blood vessels and adnexal structures. SPECIMEN ??B: There are nests of melanocytes within the dermis that mature with depth. SPECIMEN ??C: There are nests of melanocytes within the dermis. Some of these melanocytes are concentrated around blood vessels and adnexal structures. Electronically signed out by Emilia Mayen M.D. 01/03/2015 4:20:06PM [facility] Comment: Performed at: Dermatopathology Laboratory [facility] - Department of Dermatology [address] [place] [address], 5[address] [place] [address] Phone number: [phone] FAX: [phone] 12/30/2014 01/02/2015 Mauri De León MD LAB - PATHOLOGY/CYTO LOGY ORDERABLES Performing Organization Address [facility]/ZIP Co de Phone Number [facility] [address] [place] [address]. 5th Floor Lab [address] [place], [place] [address] [phone] * CARDIAC EKG ORDER (12/06/2011 5:20 PM EXECUTIVE STAFF ASSISTANT) Only the most recent of2 resultswithin the time period is included. Narrative Transcriptions Document, Scanned - 12/06/2011 5:20 PM CST Scanned Document CARDIAC SERVICES ORD ERABLES * FL FLUORO<1HR SURG C-ARM (12/05/2011 8:17 AM EXECUTIVE STAFF ASSISTANT) Anatomical Region Laterality Modality Radiographic Hilaria ging 12/05/2011 10:3 2 AM EXECUTIVE STAFF ASSISTANT Narrative 12/05/2011 10:32 AM EXECUTIVE STAFF ASSISTANT FLUOROSCOPY: Less than 1 hour ??of fluoroscopy was utilized during a microdiscectomy. No radiologist was present. ?? Procedure Note Francine Stout MD - 12/05/2011 FLUOROSCOPY: Less than 1 hour of fluoroscopy was utilized during a microdiscectomy. No radiologist was present. Kevan Baca MD FLUOROSCOPY ORDERABL ES * TYPE + SCREEN PANEL (12/05/2011 5:49 AM EXECUTIVE STAFF ASSISTANT) Only the most recent of2 resultswithin the time period is included. ABO Rh A Neg [facility] Antibody Screen Neg [facility] Miscellaneous samples (specimen) BLOOD SPECIMEN / Unknown 12/05/2011 5:49 AM EXECUTIVE STAFF ASSISTANT 12/05/2011 5:57 AM EXECUTIVE STAFF ASSISTANT Kevan Baca MD LAB - BLOOD BANK ORD ERABLES [facility] [address] [place] [address] * XR CHEST PA AND LATERAL (11/29/2011 10:23 AM EXECUTIVE STAFF ASSISTANT) Only the most recent of2 resultswithin the time period is included. Anatomical Region Laterality Modality Chest Radiographic Hilaria ging 11/29/2011 11:0 0 AM EXECUTIVE STAFF ASSISTANT Impressions 11/29/2011 11:52 AM EXECUTIVE STAFF ASSISTANT No acute pulmonary disease. Narrative 11/29/2011 11:52 AM EXECUTIVE STAFF ASSISTANT CHEST 2 VIEWS INDICATION: Cough and preop. FINDINGS: Two views of the chest, compared to October 05, 2010, show no consolidation, pleural effusion, or pneumothorax. The heart size is stable. Procedure Note Reggie Gibbs MD - 11/29/2011 CHEST 2 VIEWS INDICATION: Cough and preop. FINDINGS: Two views of the chest, compared to October 05, 2010, show no consolidation, pleural effusion, or pneumothorax. The heart size is stable. IMPRESSION No acute pulmonary disease. Kevan Baca MD DIAGNOSTIC IMAGING O RDERABLES * URINALYSIS ROUTINE AUTO (11/29/2011 9:56 AM EXECUTIVE STAFF ASSISTANT) Only the most recent of2 resultswithin the time period is included. Color UA YELLOW [facility] Character UA CLEAR [facility] Glucose UA NEGATIVE Negative [facility] Bilirubin UA NEGATIVE Negative [facility] Ketone UA NEGATIVE Negative mg/dl [facility] Specific [place]ett UA 1.010 1.003 - 1.030 [facility] pH UA 5.5 4.5 - 8.0 pH Units [facility] Protein UA NEGATIVE Negative [facility] Urobilinogen UA 0.2 <1.0 Mike Units [facility] Nitrite UA NEGATIVE Negative mg/dl [facility] Blood UA NEGATIVE Negative mg/dl [facility] Leukocyte UA NEGATIVE Negative [facility] Microscopy Examination Urine Urine Micro Not Indicated [facility] URINE SPECIMEN FROM URINARY BLADDER / Unknown 11/29/2011 9:56 AM EXECUTIVE STAFF ASSISTANT 11/29/2011 10:13 AM EXECUTIVE STAFF ASSISTANT Kevan Baca MD LAB - URINALYSIS ORD ERABLES [facility] [address] [id number] * COMPREHENSIVE METABOLIC PANEL (11/29/2011 9:56 AM EXECUTIVE STAFF ASSISTANT) Glucose 103 75 - 110 mg/dl [facility] BUN 19 7.0 - 21.0 mg/dl [facility] Creatinine 1.12 0.5 - 1.3 mg/dl [facility] Sodium 140 136 - 145 mmol/L [facility] Potassium 3.9 3.5 - 5.1 mmol/L [facility] Chloride 102 98 - 107 mmol/L [facility] CO2 29 22 - 30 mmol/L [facility] Calcium 8.9 8.5 - 10.1 mg/dl [facility] Bilirubin Total 0.4 0.2 - 1.0 mg/dl [facility] Alkaline Phosphatase 55 38 - 126 U/L [facility] AST 19 5.0 - 40.0 U/L [facility] ALT 49 12.0 - 78.0 U/L [facility] Protein Total 7.3 6.4 - 8.2 gm/dl [facility] Albumin 4.0 3.4 - 5.0 gm/dl [facility] eGFR By MDRD >60 >60 [facility] Blood specimen (specimen) BLOOD SPECIMEN / Unknown 11/29/2011 9:56 AM EXECUTIVE STAFF ASSISTANT 11/29/2011 10:13 AM EXECUTIVE STAFF ASSISTANT Kevan Baca MD LAB - CHEMISTRY HALIMA ALLISON [facility] Organization Address City/State/ZIP Co de Phone Number [facility] [address] [place] [id number] * MRI SPINE LUMBAR WITH AND WITHOUT CONTRAST (10/28/2011 2:17 PM EXECUTIVE STAFF ASSISTANT) Only the most recent of2 resultswithin the time period is included. Anatomical Region Laterality Modality Spine Magnetic Resonan ce 10/28/2011 3:12 PM EXECUTIVE STAFF ASSISTANT Impressions 10/28/2011 3:33 PM EXECUTIVE STAFF ASSISTANT A disc extrusion or free disc fragment extends caudally from the L5-S1 disc, and is significantly increased in size when compared to previous examination. This results in a moderate to severe central canal stenosis. Disc herniation eccentric to the left ??extends into the left neural foramen at L1-L2, L3-L4, and L4-L5 and it does not appear significantly changed when compared to previous examination. Narrative 10/28/2011 3:33 PM EXECUTIVE STAFF ASSISTANT MRI LUMBAR SPINE INDICATION: Low back pain with lumbar radiculopathy. Radiculopathy to left leg with numbness. Several back surgeries. COMPARISON: MRI with contrast September 18, 2010. TECHNIQUE: Sagittal and axial T1 and T2. Sagittal and axial T1 following intravenous administration of 20 mL Omniscan, sagittal STIR. FINDINGS: As on previous examination, it will be assumed that this patient has five lumbar vertebral bodies. Careful correlation between this and the subsequent radiographic examinations of the lumbar spine is recommended to ensure consistent numbering of disc spaces. This is particularly important if surgery is considered. Alignment: Within normal limits. Marrow: Mild degenerative marrow changes are present adjacent to the L4-L5 disc anteriorly and at the anterior-inferior L1 vertebral body. Spinal cord: Appears normal in morphology and in signal intensity. Terminates at T12-L1. Disc spaces: There is loss of disc hydration from L3-L4 through L5-S1 with mild loss of disc height at L3-L4 and moderate loss of disc height at L4-L5 and L5-S1. Disc herniations are present at each of these levels. Disc herniations are also present at T12-L1, L1-L2 and T11-T12. The following levels were directly imaged in the axial plane: L5-S1: An intermediate signal intensity mass extends caudally, posteriorly, and slightly to the left from the level of the L5-S1 disc. This demonstrates peripheral enhancement following administration of gadolinium. It displaces the thecal sac posteriorly with a moderate to severe central canal stenosis. This measures approximately 9.8 x 9.7 x 12.9 mm in size and is most consistent with a residual or recurrent disc extrusion or free disc fragment. Peripheral enhancement suggests a wrapped free disc fragment. This is significantly increased in size when compared to previous examination. L4-L5: Laminectomy has been performed on the left. There is a diffuse disc bulge extending into the left neural foramen resulting in a moderate left lateral recess and neural foraminal stenosis. This is stable to slightly increased in size when compared to previous examination. L3-L4: A lateral disc herniation extends into the left neural foramen resulting in a mild to moderate left lateral recess stenosis and left neural foraminal stenosis. Diffuse disc bulge and facet arthropathy results in a mild right lateral recess stenosis. When compared to previous examination, there is no significant interval change. L2-L3: No significant disc herniation or stenosis is present. L1-L2: Disc herniation eccentric to the left extending into the left neural foramen results in a mild to moderate left lateral recess and mild proximal left neural foraminal stenosis. This appears similar to previous examination in the sagittal plane. Procedure Note Francine Stout MD - 10/28/2011 MRI LUMBAR SPINE INDICATION: Low back pain with lumbar radiculopathy. Radiculopathy to left leg with numbness. Several back surgeries. COMPARISON: MRI with contrast September 18, 2010. TECHNIQUE: Sagittal and axial T1 and T2. Sagittal and axial T1 following intravenous administration of 20 mL Omniscan, sagittal STIR. FINDINGS: As on previous examination, it will be assumed that this patient has five lumbar vertebral bodies. Careful correlation between this and the subsequent radiographic examinations of the lumbar spine is recommended to ensure consistent numbering of disc spaces. This is particularly important if surgery is considered. Alignment: Within normal limits. Marrow: Mild degenerative marrow changes are present adjacent to the L4-L5 disc anteriorly and at the anterior-inferior L1 vertebral body. Spinal cord: Appears normal in morphology and in signal intensity. Terminates at T12-L1. Disc spaces: There is loss of disc hydration from L3-L4 through L5-S1 with mild loss of disc height at L3-L4 and moderate loss of disc height at L4-L5 and L5-S1. Disc herniations are present at each of these levels. Disc herniations are also present at T12-L1, L1-L2 and T11-T12. The following levels were directly imaged in the axial plane: L5-S1: An intermediate signal intensity mass extends caudally, posteriorly, and slightly to the left from the level of the L5-S1 disc. This demonstrates peripheral enhancement following administration of gadolinium. It displaces the thecal sac posteriorly with a moderate to severe central canal stenosis. This measures approximately 9.8 x 9.7 x 12.9 mm in size and is most consistent with a residual or recurrent disc extrusion or free disc fragment. Peripheral enhancement suggests a wrapped free disc fragment. This is significantly increased in size when compared to previous examination. L4-L5: Laminectomy has been performed on the left. There is a diffuse disc bulge extending into the left neural foramen resulting in a moderate left lateral recess and neural foraminal stenosis. This is stable to slightly increased in size when compared to previous examination. L3-L4: A lateral disc herniation extends into the left neural foramen resulting in a mild to moderate left lateral recess stenosis and left neural foraminal stenosis. Diffuse disc bulge and facet arthropathy results in a mild right lateral recess stenosis. When compared to previous examination, there is no significant interval change. L2-L3: No significant disc herniation or stenosis is present. L1-L2: Disc herniation eccentric to the left extending into the left neural foramen results in a mild to moderate left lateral recess and mild proximal left neural foraminal stenosis. This appears similar to previous examination in the sagittal plane. IMPRESSION A disc extrusion or free disc fragment extends caudally from the L5-S1 disc, and is significantly increased in size when compared to previous examination. This results in a moderate to severe central canal stenosis. Disc herniation eccentric to the left extends into the left neural foramen at L1-L2, L3-L4, and L4-L5 and it does not appear significantly changed when compared to previous examination. Kevan Baca MD MR ORDERABLES * (ABNORMAL) BUN+CREATININE BLOOD PNL - POINT OF CARE (10/28/2011 12:57 PM EXECUTIVE STAFF ASSISTANT) BUN POCT 24(A) 7 - 17 mg/dL [facility] POCT TESTING Creatinine POCT 1.1 0.7 - 1.2 mg/dL [facility] POCT TEST[facility] QC Verified yes Yes [facility] POC T TESTING Blood specimen (specimen) BLOOD SPECIMEN / Unknown 10/28/2011 12:57 PM EXECUTIVE STAFF ASSISTANT Kevan Baca MD LAB - POINT OF CARE ORDERABLES [facility] [address] [place] [address] * BASIC METABOLIC PANEL (CALCIUM TOTAL) (10/05/2010 10:00 AM EXECUTIVE STAFF ASSISTANT) Glucose 99 75 - 110 mg/dl [facility] BUN 19 9 - 20 mg/dl [facility] Creatinine 1.02 0.66 - 1.25 mg/dl [facility] Sodium 142 137 - 145 mmol/L [facility] Potassium 4.3 3.6 - 5.0 mmol/L [facility] Chloride 106 98 - 107 mmol/L [facility] CO2 29 22 - 30 mmol/L [facility] Calcium 9.4 8.4 - 10.2 mg/dl [facility] eGFR By MDRD >60 >60 [facility] BLOOD SPECIMEN / Unknown 10/05/2010 10:00 AM EXECUTIVE STAFF ASSISTANT 10/05/2010 10:23 AM EXECUTIVE STAFF ASSISTANT Kevan Baca MD LAB - CHEMISTRY HALIMA ALLISON [facility] [address] [place] [address] * EKG 12-LEAD (10/05/2010) Kevan Baca MD ECG ORDERABLES Care Teams Spiritual Care Coordinator Relationship Specialty Start Date End Date Mauri De León MD [address] [place] [address] PCP - General 03/29/18
--- OUTSIDE RECORDS SUMMARY | 2024-12-16 11:11 | XMS_ITS | Clinical Summary ---
Author Organization [facility] Address [address] [place] [address] Care Team Providers Care Agriculture Intern Name Role Phone Mauri De León MD Primary Care Provider [phone] Source Comments [facility],non-owned Affiliates and Associated Physician Practices is amultiple site organization consisting of ambulatory clinics and hospital sitesin [place], [place], [place] and [place]. This disclosure is being madepursuant to the Care Everywhere program and may not contain all information available regarding this patient. Last updated 18.[facility] Allergies Active Allergy Reactions Criticality Noted Date Comments Red Dye Swelling 12/10/2023 Usually in dips (food) Medications * Be aware that medications may not be up to date on this document. Alwaysverify current medications with the patient. Medication Sig Dispensed Refills Start Date End Date Status fluticasone propionate (FLONASE) 50 MCG/ACT nasal spray Leoti 1 (one) spray into each nostril once daily Active acetaminophen (TYLENOL) 325 MG tablet Take 325 mg by mouth every 4 hours as needed. Maximum allowable Acetaminophen amount = 4 Grams (4000 mg) / 24 hours. Active cyclobenzaprine (FLEXERIL) 10 MG tablet Take 10 mg by mouth at bedtime. Active ibuprofen (MOTRIN) 200 MG tablet Take 200 mg by mouth every 6 hours as needed. Active lisinopril-hydroCHLO ROthiazide (PRINZIDE; ZESTORETIC) 10-12.5 MG tabletIndications:Hy pertension Take 1 (one) tablet by mouth once daily Reasons: High Blood Pressure Disorder Active atorvastatin (LIPITOR) 20 MG tabletIndications:Mi xed Dyslipidemia Take 2 (two) tablets by mouth at bedtime Reasons: Elevation of Both Cholesterol and Triglycerides in Blood Active Testosterone 10 MG/ACT (2%) Active meloxicam (MOBIC) 15 MG tabletIndications:ba ck pain Take 1 (one) tablet by mouth once daily Reasons: back pain Active fexofenadine (REJI) 60 MG tabletIndications:Se asonal Allergic Rhinitis Take 1 (one) tablet by mouth 2 times daily Reasons: Hayfever Active EPINEPHrine (Epipen) 0.3 MG/0.3ML auto-injector pen Inject 0.3 mL into muscle once as needed for Anaphylaxis 0.6 mL 12/12/2023 Active Syringe/Needle, Disp, (SYRINGE 3CC/25GX5/8 ) 25G X 5/8 3 ML MISC For use with Allergy serum as directed 30 Each 3 03/25/2024 Active Active Problems Problem Noted Date Diagnosed Date ETD (Eustachian tube dysfunction), bilateral Allergic rhinitis due to pollen 09/11/2023 Hyperlipidemia 09/11/2023 09/11/2023 Sensorineural hearing loss 07/10/202309/11 Chronic otitis media 07/04/2023 09/11/2023 Lumbar spondylosis 06/07/2018 Left foot drop 06/07/2018 Essential hypertension 01/27/2018 3 Immunizations Name Administration Dates Next Due FLU, HISTORIC VACCINE 09/29/2013 INFLUENZA VACCINE, CELL CULT URE, QUADR. (FLUCELVAX QUADRIVALENT; 6MO+) (CCIIV4) 09/01/2023,09/02/2022,09/01/2021,2019,07/21/2019,10/05/2018,09/18/2017 Zoster Hzv Vacc Recombinant Inj Im 10/21/2020, Social History Tobacco Use Types Packs/Day Years [...] Mass Index 37.07 03/10/2024 1:09 PM CDT Plan of Treatment Upcoming Encounters Date Type Department Care Team (Late st Contact Info) Description 03/09/2025 1:00 PM CDT Office Visit [facility] - ENT [address] [place] [address], [place] [address] Mauro Calderon MD [address] [place] [address] [place] [address] Health Maintenance Due Date Last Done Comments COLOGUARD (AGES 45-75) - COLON CA SCREENING 1960 COLON MONITORING 1960 COLONOSCOPY - COLON CA SCREENING 1960 CT COLONOGRAPHY - COLON CA SCREENING 1960 Colorectal Cancer Screening 1960 FIT - COLON CA SCREENING 1960 FLEX SIG - COLON CA SCREENING 1960 HIV SCREENING 1975 HEPATITIS C SCREENING 09/16/1978 DTAP/TDAP/TD VACCINES (1 - Tdap) 1979 PNEUMOCOCCAL VACCINE 50+ (1 of 1 - PCV) 2010 SCREENING FOR DIABETES 03/10/2024 11/29/2011, 2009 COVID-19 VACCINE ( season) 2024 09/01/2023, 09/02/2022, 03/11/2022, Additional history exists INFLUENZA VACCINE (#1) 2024 , 09/02/2022, 09/01/2021, Additional history exists DEPRESSION SCREENING 11/24/2024 Respiratory Syncytial Virus (RSV) Vaccine Pt: or over 60 yrs (1 - 1-dose 75+ series) 2035 ZOSTER VACCINE Completed 10/21/2020, 07/22/2020 HEPATITIS B VACCINE Aged Out No longe r eligible based on patient's age to complete this topic HIB VACCINE Aged Out No longer eligi ble based on patient's age to complete this topic HPV VACCINE Aged Out No longer eligi ble based on patient's age to complete this topic MENINGOCOCCAL (Group B) VACCINE Aged Out No longer eligible based on patient's age to complete this topic MENINGOCOCCAL VACCINE Aged Out No damian noé eligible based on patient's age to complete this topic PNEUMOCOCCAL VACCINE Aged Out No long er eligible based on patient's age to complete this topic Procedures Procedure Name Priority Date/Time Associated Diagnosis Comments COMPREHENSIVE METABOLIC PANEL Routine 11/29/2011 9:56 AM AGENT PRODUCER Preoperative examination, unspecified from Last 3 Months or Most Recently Relevant to Health Maintenance Results * COMPREHENSIVE METABOLIC PANEL (11/29/2011 9:56 AM AGENT PRODUCER) Glucose 103 75 - 110 mg/dl [facility] BUN 19 7.0 - 21.0 mg/dl [facility] Creatinine 1.12 0.5 - 1.3 mg/dl [facility] Sodium 140 136 - 145 mmol/L [facility] Potassium 3.9 3.5 - 5.1 mmol/L [facility] Chloride 102 98 - 107 mmol/L [facility] CO2 29 22 - 30 mmol/L [facility] Calcium 8.9 8.5 - 10.1 mg/dl [facility] Bilirubin Total 0.4 0.2 - 1.0 mg/dl [facility] Alkaline Phosphatase 55 38 - 126 U/L [facility] AST 19 5.0 - 40.0 U/L [facility] ALT 49 12.0 - 78.0 U/L [facility] Protein Total 7.3 6.4 - 8.2 gm/dl [facility] Albumin 4.0 3.4 - 5.0 gm/dl [facility] eGFR By MDRD >60 >60 [facility] Blood specimen (specimen) BLOOD SPECIMEN / Unknown 11/29/2011 9:56 AM AGENT PRODUCER 11/29/2011 10:13 AM AGENT PRODUCER Kevan Baca MD LAB - CHEMISTRY HALIMA Cool Organization Address City/State/ZIP Co de Phone Number [facility] [address] [id number] from Last 3 Months or Most Recently Relevant to Health Maintenance Care Teams Agriculture Intern Relationship Specialty Start Date End Date Mauri De León MD [address] [place] [address] PCP - General 03/29/18
--- OUTSIDE RECORDS SUMMARY | 2024-12-16 11:11 | XMS_ITS | Encounter Summary ---
Author Organization [facility] Address [address] [place] [address]. [place], [place] [id number] [place] [address] Care Team Providers Care Gauge Maker Apprentice Name Role Phone Mauri De León MD Primary Care Provider [phone] Encounter Details Date Type Department Care Team (Late Contact Info) Description 01/01/2021 Abstract [facility] [address] German Madsen [place] Social History Tobacco Use Types Packs/Day Years Used Date Smoking Tobacco: Never Smokeless Tobacco: Never Alcohol Use Standard Drinks/Week Comments Yes 0 (1 standard drink = 0.6 oz pur e alcohol) AUDIT-C Answer Date Recorded Q1: How often do you have a drink containing alc ohol? 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 No / Unsure 12/19/2020 1:58 PM INSTITUTION DIRECTOR documented as of this encounter Plan of Treatment Upcoming Encounters Date Type Department Care Team (Late Contact Info) Description 04/14/2025 3:30 PM CDT Appointment [facility] [address] [facility] [place] [address] Roxie Amato MD Three [facility]. [address] [place], [place] [address] 04/28/2025 10:30 AM CDT Office Visit [facility] [address] [facility] [address], [address] [place], [place] [address] Jonna Espinoza APRN Three [facility]. [address] [place], [place] [id number] documented as of this encounter Procedures Procedure Name Priority Date/Time Associated Diagnosis Comments COMPREHENSIVE METABOLIC PANEL Routine 01/03/2023 FREE T3 Routine 10/10/2022 COMPREHENSIVE METABOLIC PANEL Routine 10/10/2022 LIPID PANEL Routine 10/10/2022 CBC, MANUAL DIFF Routine 10/10/2022 THYROID STIM HORMONE TSH Routine 10/10/2022 CBC (OUTSIDE LAB) Routine 09/03/2021 COMPREHENSIVE METABOLIC PANEL Routine 09/03/2021 LIPID PANEL Routine 09/03/2021 BASIC METABOLIC PANEL Routine 12/29/2020 documented in this encounter Results * COMPREHENSIVE METABOLIC PANEL (01/03/2023) SODIUM S/P/B 136 GLUCOSE 132 mg/dL BUN 16 CREATININE S/P/B 1.0 0.7 - 1.3 CALCIUM S/P/B 8.8 POTASSIUM S/P/B 4.3 CHLORIDE S/P/B 101 GFR ESTIMATE >60 Narrative Resulting Agency Comment Default History Genericprovider LABORATORY Final Result * COMPREHENSIVE METABOLIC PANEL (10/10/2022) SODIUM S/P/B 138 GLUCOSE 129 mg/dL BUN 20 CREATININE S/P/B 1.06 0.7 - 1.3 CALCIUM S/P/B 9.5 POTASSIUM S/P/B 4.3 CHLORIDE S/P/B 102 GFR ESTIMATE 79 Narrative Resulting Agency Comment Default History Genericprovider LABORATORY Final Result * LIPID PANEL (10/10/2022) Pathologist [facility] CHOLESTEROL 172 TRIGLYCERIDES 154 HDL 46 LDL (CALCULATED) 100 NON HDL CHOLESTEROL 126 Narrative Resulting Agency Comment Default History Genericprovider LABORATORY Final Result * CBC, MANUAL DIFF (10/10/2022) Pathologist [facility] WBC 6.0 HGB 15.8 HCT 48.3 PLT 230 Narrative Resulting Agency Comment Default History Genericprovider LABORATORY Final Result * THYROID STIM HORMONE, TSH (10/10/2022) Pathologist [facility] TSH 1.58 Narrative Resulting Agency Comment Default History Genericprovider LABORATORY Final Result * FREE T3 (10/10/2022) Pathologist [facility] FREE T3 1.3 Narrative Resulting Agency Comment Default History Genericprovider LABORATORY Final Result * LIPID PANEL (09/03/2021) CHOLESTEROL 145 HDL 39 TRIGLYCERIDES 248 NON HDL CHOLESTEROL 106 LDL (CALCULATED) 73 09/03/2021 Doc [facility] Abstract LABORATORY Final Result * (ABNORMAL) COMPREHENSIVE METABOLIC PANEL (09/03/2021) SODIUM S/P/B 141 POTASSIUM S/P/B 4.6 CO2 28 CHLORIDE S/P/B 106 GLUCOSE 131 mg/dL CALCIUM S/P/B 9.5 BUN 21 CREATININE S/P/B 1.01 0.7 - 1.3 EGFR AFR. AMER. 93(A) <=90 EGFR NON-AFR. AMER. 80 <=90 ALKALINE PHOSPHATASE S/P/B 73 ALT 27 AST 21 BILIRUBIN TOTAL S/P/B 0.4 ALBUMIN S/P/B 4.3 3.5 - 5.0 TOTAL PROTEIN S/P/B 6.6 09/03/2021 us Doc [facility] Abstract LABORATORY Final Result * CBC (OUTSIDE LAB) (09/03/2021) WBC 4.8 HGB 14.9 HCT 45.3 PLT 230 09/03/2021 us Doc [facility] Abstract LAB-OUTSIDE/ABSTRACTED Final Result * BASIC METABOLIC PANEL (12/29/2020) SODIUM S/P/B 140 POTASSIUM S/P/B 4.2 CO2 32 CHLORIDE S/P/B 100 GLUCOSE 121 mg/dL CALCIUM S/P/B 9.7 BUN 17 CREATININE S/P/B 1.10 0.7 - 1.3 EGFR AFR. AMER. 84 <=90 EGFR NON-AFR. AMER. 73 <=90 12/29/2020 us Doc [facility] LABORATORY Final Result documented in this encounter Visit Diagnoses Not on filedocumented in this encounter Care Teams Gauge Maker Apprentice Relationship Specialty Start Date End Date Mauri De León MD [address] [place], [place] [id number] PCP - General FAMILY PRACTICE 11/10/20 documented as of this encounter
--- OUTSIDE RECORDS SUMMARY | 2024-12-16 11:11 | XMS_ITS | Clinical Summary ---
Author Organization [facility] Address [address] [place] [address]. [place] [address] [place] [address] Care Team Providers Care Sugar Coating Hand Name Role Phone Mauri De León MD Primary Care Provider [phone] Allergies Active Allergy Reactions Criticality Noted Date Comments Red Dye Swelling 12/10/2023 Usually in dips (food) Medications atorvastatin 40 MG tablet Take 1 tablet by mouth daily. 0 Active meloxicam 15 MG tablet Take 15 mg by mouth daily. 0 Active fluticasone propionate 50 MCG/ACT nasal spray 2 sprays by Nasal route daily. 0 Active Testosterone 10 MG/ACT (2%) Gel 0 Active hydroCHLOROthia zide (HYDRODIURIL) 25 MG tablet Take 1 tablet (25 mg total) by mouth every morning. New dose 90 tablet 1 3 Active fexofenadine (REJI) 180 MG tablet Take 1 tablet (180 mg total) by mouth daily. Active sildenafil (VIAGRA) 50 MG tablet Take 1 tablet (50 mg total) by mouth as needed. 3 Active lisinopril (PRINIVIL) 40 MG tablet TAKE 1 TABLET(40 MG) BY MOUTH DAILY 90 tablet 1 5 Active lisinopril (PRINIVIL) 40 MG tablet TAKE 1 TABLET(40 MG) BY MOUTH DAILY 90 tablet 4 12/03/19 25 Discontinued Active Problems Problem Noted Date Diagnosed Date Dyspnea on exertion 12/13/2020 History of cardiac murmur 12/13/2020 Obesity (BMI 30-39.9) 12/13/2020 Hyperlipidemia Essential hypertension Encounters Date Type Department Care Team Description 12/03/2024 Telephone [facility] THREE [facility], [address] [address] Roxie Amato MD Information ([facility] Pre-Anesthesia) from Last 3 Months Immunizations Name Administration Dates Next Due Flucelvax 6 Months+ (Prefill ed Syringe) 07/22/2020,07/21/2019,10/05/2018, 017 Shingrix 10/21/2020,07/22/2020 Family History Medical History Relation Comments Heart Attack Father Open Heart Father Stent Cardiac Father 2 Sudden Maternal Grandfather Hypertension Mother cirrhosis of liver, non drinker Paternal Grandmo ther Heart Paternal Uncle Stent Cardiac Paternal Uncle Relation Status Comments Father (Age 75) Maternal Grandfather (Age 74) Maternal Grandmother (Age 82) Mother Alive Paternal Grandfather (Age 81) Paternal Grandmother (Age 72) Paternal Uncle Alive Sister 1 Alive Sister 2 Alive Sister 3 Alive Social History Tobacco Use Types Packs/Day Years [...] on file Legal Sex Male 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 Gender Identity Not on file Sexual Orientation Not on file 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 Not on file Not on file 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 [employer] Not on file Not on file Not on file Last Filed Vital Signs Vital Sign Reading Time Taken Comments Blood Pressure 120/72 08/12/2024 9:33 AM CDT Pulse 73 08/12/2024 9:19 AM CDT Temperature - - Respiratory Rate - - Oxygen Saturation 97% 08/12/2024 9:19 AM CDT Inhaled Oxygen Concentration - - Weight 126.6 kg (279 lb) 08/12/2024 9:19 AM CDT Height 185.4 cm (6' 1 ) 08/12/2024 9:19 AM CDT Body Mass Index 36.81 08/12/2024 9:19 AM CDT Plan of Treatment Upcoming Encounters Date Type Department Care Team (Late st Contact Info) Description 04/14/2025 3:30 PM CDT Appointment [facility] Non Invasive Cardiology [address] [facility] [place] [place] [address] Roxie Amato MD Three [facility]. [address] [place], [place] [address] 04/28/2025 10:30 AM CDT Office Visit [facility], [address] [place], [place] [id number] Jonna Espinoza APRN Three [facility]. [address] [place], [place] [phone] Health Maintenance Due Date Last Done Comments Colorectal Cancer Screening Colonoscopy (10 Years) 1960 Annual Physical 1963 Pneumococcal Vaccine: Pediatrics (0 to 5 Years) and At-Risk Patients (6 to 64 Years) (1 of 2 - PCV) 1966 Hepatitis C 1978 RSV Immunization or 60+ Years (1 - Risk 60-74 years 1-dose series) 2020 DTaP, Tdap and Td Vaccines (2 - Td or Tdap) 01/27/2022 01/28/2012, 11/20/1995 COVID-19 Vaccine ( season) 2024 09/01/2021, 02/20/2021, 01/31/2021 Influenza Adult (#1) 2024 09/01/2023, 09/02/2022, 09/01/2021, Additional history exists Meningococcal Vaccine Aged Out 01/28/2012 No damian noé eligible based on patient's age to complete this topic Zoster Vaccines Completed 10/21/2020, 07/22/2020 RSV Immunizations Under 20 Months Aged Out No longer eligible based on patient's age to complete this topic Insurance Care Teams Sugar Coating Hand Relationship Specialty Start Date End Date Mauri De León MD [address] [address] PCP - General FAMILY PRACTICE 11/10/20
--- OUTSIDE RECORDS SUMMARY | 2024-12-16 11:11 | XMS_ITS | Referral Summary ---
Author Organization [email or web address] Address [address] [place] [address] Care Team Providers Care Level Vial Inspector Name Role Phone Mauri De León MD Primary Care Provider [phone] Source Comments [email or web address],non-owned Affiliates and Associated Physician Practices is amultiple site organization consisting of ambulatory clinics and hospital sitesin [place], [place], [place] and [place]. This disclosure is being madepursuant to the Care Everywhere program and may not contain all information available regarding this patient. Last updated 18.[email or web address] Allergies Active Allergy Reactions Criticality Noted Date Comments Red Dye Swelling 12/10/2023 Usually in dips (food) Medications * Be aware that medications may not be up to date on this document. Alwaysverify current medications with the patient. Medication Sig Dispensed Refills Start Date End Date Status fluticasone propionate (FLONASE) 50 MCG/ACT nasal spray Ethel 1 (one) spray into each nostril once [...] Description 03/09/2025 1:00 PM CDT Office Visit [facility] - ENT [address] [place] [phone] Mauro Calderon MD [address] [place] [address] [place] [address] Procedures Procedure Name Priority Date/Time Associated Diagnosis Comments COMPREHENSIVE METABOLIC PANEL Routine 11/29/2011 9:56 AM OFFICE SUPPORT SPECIALIST Preoperative examination, unspecified from Last 3 Months or Most Recently Relevant to Health Maintenance Results * COMPREHENSIVE METABOLIC PANEL (11/29/2011 9:56 AM OFFICE SUPPORT SPECIALIST) Glucose 103 75 - 110 mg/dl [facility] BUN 19 7.0 - 21.0 mg/dl [facility] Creatinine 1.12 0.5 - 1.3 mg/dl [facility] Sodium 140 136 - 145 mmol/L [facility] Potassium 3.9 3.5 - 5.1 mmol/L [facility] Chloride 102 98 - 107 mmol/L [facility] CO2 29 22 - 30 mmol/L [facility] Calcium 8.9 8.5 - 10.1 mg/dl [facility] Bilirubin Total 0.4 0.2 - 1.0 mg/dl [facility] Alkaline Phosphatase 55 38 - 126 U/L [facility] AST 19 5.0 - 40.0 U/L [facility] ALT 49 12.0 - 78.0 U/L [facility] Protein Total 7.3 6.4 - 8.2 gm/dl [facility] Albumin 4.0 3.4 - 5.0 gm/dl [facility] eGFR By MDRD >60 >60 [facility] Blood specimen (specimen) BLOOD SPECIMEN / Unknown 11/29/2011 9:56 AM OFFICE SUPPORT SPECIALIST 11/29/2011 10:13 AM OFFICE SUPPORT SPECIALIST Kevan Baca MD LAB - CHEMISTRY HALIMA ALLISON [facility] [address] [address] from Last 3 Months or Most Recently Relevant to Health Maintenance Care Teams Level Vial Inspector Relationship Specialty Start Date End Date Mauri De León MD [address] [place] [address] PCP - General 03/29/18
== END 2024-12-13 15:36 | disposition home or self-care (01) ==
PROVIDERS: PCP Family Medicine; Visit Provider Surgery
PROC: (CPT 49592; principal; 2024-12-13 12:00)
DX: K42.0 Umbilical hernia with obstruction, without gangrene (principal); I10 Essential (primary) hypertension; E29.1 Testicular hypofunction; G47.33 Obstructive sleep apnea (adult) (pediatric); M17.11 Unilateral primary osteoarthritis, right knee; M51.369 Other intervertebral disc degeneration, lumbar region without mention of lumbar back pain or lower extremity pain; G56.20 Lesion of ulnar nerve, unspecified upper limb; G89.29 Other chronic pain; M79.641 Pain in right hand; M25.551 Pain in right hip; M54.42 Lumbago with sciatica, left side; E66.9 Obesity, unspecified; Z68.37 Body mass index [BMI] 37.0-37.9, adult; Z79.899 Other long term (current) drug therapy; Z98.890 Other specified postprocedural states; Z98.1 Arthrodesis status; Z82.49 Family history of ischemic heart disease and other diseases of the circulatory system
CPT/HCPCS: 49592; A9270; J0690; J1100; J1885; J2004; J2405; J2704; J3010; J7120

== ENCOUNTER 2025-11-21 09:50 | Outpatient (CLI) | payer MEDICARE, OTHER, SELFPAY ==
--- NOTE | 2025-11-21 10:05 | ECG_ITS ---
Test Date: 2025-11-21 10:20:22 Measurements Intervals [place] Rate: 68 P: 62 VA: 220 QRS: 29 QRSD: 105 T: 55 QT: 356 QTc: 379 Interpretive Statements SINUS RHYTHM WITH FIRST DEGREE AV BLOCK BASELINE ARTIFACT- I, II, III, AVR, AVL, AVF BORDERLINE ECG Compared to ECG 12/07/2024 14:42:52 NO SIGNIFICANT CHANGE Electronically Signed On 11-21-2025 21:52:14 [employer] by Zachary Qureshi D.O.
--- OUTSIDE RECORDS SUMMARY | 2025-11-21 10:16 | XMS_ITS | Encounter Summary ---
Author Organization [facility] Address [address] [place] [address] Care Team Providers Care Boarding House Manager Name Role Phone Mauri De León MD Primary Care Provider [phone] Reason for Visit * Reason Onset Date Comments Nurse Only 03/04/2024 Encounter Details Date Type Department Care Team (Late st Contact Info) Description 03/04/2024 Telephone [facility] - Centralized Scheduling [address] [place] [address] Mauro Calderon MD [address] [facility] LEVEL DOOR [address] [place] [address] Nurse Only Social History Tobacco Use Types Packs/Day Years Used Date Smoking Tobacco: Never Smokeless Tobacco: Never Alcohol Use Standard Drinks/Week Comments Yes 0 (1 standard drink = 0.6 oz pur e alcohol) Sex and Gender Information Value Date Recorded Sex Assigned at Not on file 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 Gender Identity Not on file Sexual Orientation Not on file documented as of this encounter Miscellaneous Notes * Telephone Encounter - Agustina Raygoza - 03/04/2024 10:28 AM CDT Patient called, his insurance is needing a code number for his allergy inj cbn [phone] documented in this encounter Plan of Treatment Upcoming Encounters Date Type Department Care Team (Late st Contact Info) Description 09/06/2026 1:15 PM CDT Office Visit [facility] - ENT [address] [facility], [place] [address] Mauro Calderon MD [facility] [facility] [address] [place] [address] documented as of this encounter Visit Diagnoses Not on filedocumented in this encounter Care Teams Boarding House Manager Relationship Specialty Start Date End Date Mauri De León MD [address] [place] [address] PCP - General 03/29/18 documented as of this encounter
--- OUTSIDE RECORDS SUMMARY | 2025-11-21 10:16 | XMS_ITS | Encounter Summary ---
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 No / Unsure 12/19/2020 1:58 PM GLASS CYLINDER FLANGER documented as of this encounter Plan of Treatment Upcoming Encounters Date Type Department Care Team (Late Contact Info) Description 05/04/2026 9:00 AM CDT Office [facility] THREE [facility], [address] [place], [place] [id number] Roxie Amato MD Three [facility]. [address] [place] [address] documented as of this encounter Procedures Procedure Name Priority Date/Time Associated Diagnosis Comments HEMOGLOBIN GLYCOSYLATED A1C Routine 03/15/2025 CMP (ABSTRACTED LAB) Routine 01/15/2025 TSH (OUTSIDE LAB) Routine 01/15/2025 CBC (OUTSIDE LAB) Routine 01/15/2025 LIPID PANEL Routine 01/15/2025 COMPREHENSIVE METABOLIC PANEL Routine 01/03/2023 FREE T3 Routine 10/10/2022 COMPREHENSIVE METABOLIC PANEL Routine 10/10/2022 LIPID PANEL Routine 10/10/2022 CBC, MANUAL DIFF Routine 10/10/2022 THYROID STIM HORMONE TSH Routine 10/10/2022 CBC (OUTSIDE LAB) Routine 09/03/2021 COMPREHENSIVE METABOLIC PANEL Routine 09/03/2021 LIPID PANEL Routine 09/03/2021 BASIC METABOLIC PANEL Routine 12/29/2020 documented in this encounter Results * HEMOGLOBIN, GLYCOSYLATED (03/15/2025) HGB A1C 7.8 % 03/15/2025 Default History Genericprovider LABORATORY Final Result * CBC (OUTSIDE LAB) (01/15/2025) Pathologist [facility] WBC 5.8 HGB 15.3 HCT 46.8 PLT 230 01/15/2025 Default History Genericprovider LAB-OUTSIDE/ABST RACTED Final Result * CMP (ABSTRACTED LAB) (01/15/2025) SODIUM S/P/B 137 POTASSIUM S/P/B 4.3 CHLORIDE S/P/B 101 CO2 30 BUN 18 CREATININE S/P/B 0.96 0.7 - 1.3 EGFR NON-AFR. AMER. 88 <=90 CALCIUM S/P/B 9.3 GLUCOSE 185 mg/dL TOTAL PROTEIN S/P/B 6.5 ALBUMIN S/P/B 4.3 3.5 - 5.0 AST 24 ALT 39 ALKALINE PHOSPHATASE S/P/B 66 BILIRUBIN TOTAL S/P/B 0.1 GLOBULIN 2.2 01/15/2025 Default History Genericprovider LAB-OUTSIDE/ABST RACTED Final Result * LIPID PANEL (01/15/2025) CHOLESTEROL 176 HDL 39 TRIGLYCERIDES 327 NON HDL CHOLESTEROL 137 LDL (CALCULATED) 93 01/15/2025 Default History Genericprovider LABORATORY Final Result * TSH (OUTSIDE LAB) (01/15/2025) Pathologist [facility] TSH 1.46 01/15/2025 Default History Genericprovider LAB-OUTSIDE/ABST RACTED Final Result * COMPREHENSIVE METABOLIC PANEL (01/03/2023) Pathologist [facility] SODIUM S/P/B 136 GLUCOSE 132 mg/dL BUN [...] LABORATORY Final Result * LIPID PANEL (10/10/2022) CHOLESTEROL 172 TRIGLYCERIDES 154 HDL 46 LDL (CALCULATED) 100 NON HDL CHOLESTEROL 126 Narrative Resulting Agency Comment Default History Genericprovider LABORATORY Final Result * CBC, MANUAL DIFF (10/10/2022) WBC 6.0 HGB 15.8 HCT 48.3 PLT [...] on filedocumented in this encounter Care Teams Tube Bender Hand Relationship Specialty Start Date End Date Mauri De León MD [address] [place] [address] PCP - General FAMILY PRACTICE 11/10/20 documented as of this encounter
--- OUTSIDE RECORDS SUMMARY | 2025-11-21 10:16 | XMS_ITS | Clinical Summary ---
Author Organization [facility] Address [address] [place] [address] Care Team Providers Care Assembler Deck And Hull Name Role Phone Mauri De León MD Primary Care Provider [phone] Source Comments [facility],non-owned Affiliates and Associated Physician Practices is amultiple site organization consisting of ambulatory clinics and hospital sitesin [place] and [place]. This disclosure is being madepursuant to the Care Everywhere program and may not contain all information available regarding this patient. Last updated 18.[facility] Allergies Active Allergy Reactions Criticality Noted Date Comments Red Dye Swelling 12/10/2023 Usually in dips (food) Medications * Be aware that medications may not be up to date on this document. Alwaysverify current medications with the patient. fluticasone propionate (FLONASE) 50 MCG/ACT nasal spray Central 1 (one) spray into each nostril once [...] mouth every 6 hours as needed. Active lisinopril-hydroCH LOROthiazide (PRINZIDE; ZESTORETIC) 10-12.5 MG tabletIndications: Hypertension Take 1 (one) tablet by mouth once daily Reasons: High Blood Pressure Disorder Active atorvastatin (LIPITOR) 20 MG tabletIndications: Mixed Hyperlipidemia Take 2 (two) tablets by mouth at bedtime Reasons: Elevation of Both Cholesterol and Triglycerides in Blood Active Testosterone 10 MG/ACT (2%) Active meloxicam (MOBIC) 15 MG tabletIndications: back pain Take 1 (one) tablet by mouth once daily Reasons: back pain Active fexofenadine (REJI) 60 MG tabletIndications: Seasonal Allergic Rhinitis Take 1 (one) tablet by mouth 2 times daily Reasons: Hayfever Active doxycycline monohydrate 50 MG capsule Take 1 (one) capsule by mouth once daily 02/13/20 25 Active benzonatate (Tessalon) 200 MG capsule Take 1 (one) capsule by mouth 3 times daily as needed for cough 11/19/20 23 Active famotidine (Pepcid) 20 MG tablet Take 1 (one) tablet by mouth once daily 07/22/20 24 Active hydroCHLOROthiazid e 12.5 MG Take 1 (one) tablet by mouth once daily 04/23/20 24 Active hydroCHLOROthiazid e (Hydrodiuril) 25 MG tablet Take 1 (one) tablet by mouth once daily 02/13/20 25 Active lisinopril (Prinivil; Zestril) 40 MG tablet Take 1 (one) tablet by mouth once daily 04/24/20 23 Active oxyCODONE, immediate release, (Roxicodone) 5 MG tablet Take 1 (one) tablet by mouth every 6 hours as needed pain 12/13/19 25 Active sildenafil (Viagra) 50 MG tablet Take 1 (one) tablet by mouth once as needed Active tamsulosin (Flomax) 0.4 MG capsule Take 1 (one) capsule by mouth at bedtime 02/29/20 25 Active Syringe/Needle, Disp, (SYRINGE 3CC/25GX5/8) 25G X 5/8 3 ML MISC For use with Allergy serum as directed 30 Each 3 04/20/20 25 Active EPINEPHrine (Epipen) 0.3 MG/0.3ML auto-injector pen Inject 0.3 mL into muscle once as needed for Anaphylaxis 0.6 mL 04/20/20 25 Active Active Problems Problem Noted Date Diagnosed Date ETD (Eustachian tube dysfunction), bilateral Allergic rhinitis due to pollen 09/11/2023 Hyperlipidemia 09/11/2023 09/11/2023 Sensorineural hearing loss 07/10/202309/11 Chronic otitis media 07/04/2023 09/11/2023 Lumbar spondylosis 06/07/2018 Left foot drop 06/07/2018 Essential hypertension 01/27/2018 3 Encounters Date Type Department Care Team Description 09/19/2025 Travel from Last 3 Months Immunizations Immunization Administration Dates Next Due INFLUENZA VACCINE, TRIV. (AF LURIA, FLUZONE TRIVALENT; 6MO+) (IIV3) 08/19/2012 Covid ITDatabase primary monoval ent 12+ yr 0.3mL Purple cap 02/20/2021,01/31/2021 FLU VACCINE QUAD IIV4 SPLIT 0.25 ML IM 6 FLU, HISTORIC VACCINE 09/29/2013 HEP A VACCINE, ADULT 08/01/1998,09/30/1997,10/05 HEP B VACCINE, ADULT 3 DOSE 08/19/2012, 2,01/28/2012 INFLUENZA VACCINE 07/25/2015 INFLUENZA VACCINE, CELL CULT URE, QUADR. (FLUCELVAX QUADRIVALENT; 6MO+) (CCIIV4) 09/01/2023,09/02/2022,09/01/2021,07/22,07/21/2019,10/05/2018,09/18/2017 INFLUENZA VACCINE, QUADR. (A FLURIA, FLUZONE QUADRIVALENT; 6MO+) (IIV4) 10/28/2006,10/25/2005 MENINGOCOCCAL ACWY (MCV4P) VAC IM 01/28/2012 MMR 01/18/2016,11/20/1995 POLIO OPV 08/03/1998 TDAP (7yrs+) 01/28/2012 TYPHOID IM 11/03/2014,01/28/2012 TYPHOID ORAL 08/03/1998 Td (Adult), 2 Lf Tetanus Tox oid, Adsorbed, Pf 11/20/1995 YELLOW FEVER 01/28/2012,08/03/1998 Zoster Hzv Vacc Recombinant Inj Im 10/21/2020, Social History Tobacco Use Types Packs/Day Years Used Date Smoking Tobacco: Never Smokeless Tobacco: Never Tobacco Cessation:Counseling Given: Not Answered Alcohol Use Standard Drinks/Week Comments Yes 0 (1 standard drink = 0.6 oz pur e alcohol) Sex and Gender Information Value Date Recorded Sex Assigned at Not on file 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 Gender Identity Not on file Sexual Orientation Not on file Last Filed Vital Signs Vital Sign Reading Time Taken Comments Blood Pressure 136/78 03/09/2025 12:44 PM CDT Pulse 74 03/09/2025 12:44 PM CDT Temperature 36.7 C (98.1 F) 02/24/2018 2:44 PM CDT Respiratory Rate 18 06/02/2018 3:18 PM CDT Oxygen Saturation 95% 03/10/2024 1:09 PM CDT Inhaled Oxygen Concentration - - Weight 127.9 kg (282 lb) 03/09/2025 12:44 PM CDT Height 185.4 cm (6' 1) 03/09/2025 12:44 PM CDT Body Mass Index 37.21 03/09/2025 12:44 PM CDT Plan of Treatment Upcoming Encounters Date Type Department Care Team (Late st Contact Info) Description 09/06/2026 1:15 PM CDT Office Visit [facility] - [facility] [address] [place] [phone] Mauro Calderon MD [address] [place] [address] [address] [place] [address] Health Maintenance Due Date Last Done Comments COLOGUARD (AGES 45-75) - COLON CA SCREENING 1960 COLON MONITORING 1960 COLONOSCOPY - COLON CA SCREENING 1960 CT COLONOGRAPHY - COLON CA SCREENING 1960 Colorectal Cancer Screening 1960 FIT - COLON CA SCREENING 1960 FLEX SIG - COLON CA SCREENING 1960 MEDICARE AWV 12 MONTHS 1960 HIV SCREENING 1975 HEPATITIS C SCREENING 09/16/1978 PNEUMOCOCCAL VACCINE 50+ (1 of 1 - PCV) 2010 DTAP/TDAP/TD VACCINES (2 - Td or Tdap) 01/27/2022 01/28/2012, 11/20/1995 SCREENING FOR DIABETES 03/10/2024 11/29/2011, 2009 DEPRESSION SCREENING 11/24/2024 COVID-19 VACCINE ( season) 2025 09/01/2023, 09/02/2022, 03/11/2022, Additional history exists INFLUENZA VACCINE (#1) 2025 3, 09/02/2022, 09/01/2021, Additional history exists Respiratory Syncytial Virus (RSV) Vaccine Pt: or over 60 yrs (1 - 1-dose 75+ series) 2035 MENINGOCOCCAL GROUPS A/C/Y/W VACCINE Aged Out 01/28/2012 No longer eligible based on patient's age to complete this topic HEPATITIS B VACCINE Completed 08/19/2012, 03/05/2012, 01/28/2012 ZOSTER VACCINE Completed 10/21/2020, 07/22/2020 HIB VACCINE Aged Out No longer eligi ble based on patient's age to complete this topic HPV VACCINE Aged Out No longer eligi ble based on patient's age to complete this topic MENINGOCOCCAL (Group B) VACCINE SHARED DECISION-MAKING Aged Out No longer eligible based on patient's age to complete this topic Procedures Procedure Name Priority Date/Time Associated Diagnosis Comments COMPREHENSIVE METABOLIC PANEL Routine 11/29/2011 9:56 AM ASSISTANT FOREMAN Preoperative examination, unspecified from Last 3 Months or Most Recently Relevant to Health Maintenance Results * COMPREHENSIVE METABOLIC PANEL (11/29/2011 9:56 AM ASSISTANT FOREMAN) Glucose 103 75 - 110 mg/dl [facility] BUN 19 7.0 - 21.0 mg/dl [facility] Creatinine 1.12 0.5 - 1.3 mg/dl [facility] Sodium 140 136 - 145 mmol/L [facility] Potassium 3.9 3.5 - 5.1 mmol/L [facility] Chloride 102 98 - 107 mmol/L [facility] CO2 29 22 - 30 mmol/L [facility] Calcium 8.9 8.5 - 10.1 mg/dl [facility] Bilirubin Total 0.4 0.2 - 1.0 mg/dl [facility] Alkaline Phosphatase 55 38 - 126 U/L [facility] AST 19 5.0 - 40.0 U/L [facility] ALT 49 12.0 - 78.0 U/L [facility] Protein Total 7.3 6.4 - 8.2 gm/dl [facility] Albumin 4.0 3.4 - 5.0 gm/dl [facility] eGFR By MDRD >60 >60 [facility] Blood specimen (specimen) BLOOD SPECIMEN / Unknown 11/29/2011 9:56 AM ASSISTANT FOREMAN 11/29/2011 10:13 AM ASSISTANT FOREMAN Kevan Baca MD LAB - CHEMISTRY ORDERABLES Final Result [facility] [address] [id number] from Last 3 Months or Most Recently Relevant to Health Maintenance Insurance MEDICARE [facility] Care Teams Assembler Deck And Hull Relationship Specialty Start Date End Date Mauri De León MD [address] [place] [address] PCP - General 03/29/18
--- OUTSIDE RECORDS SUMMARY | 2025-11-21 10:16 | XMS_ITS | Clinical Summary ---
Author Organization [facility] Address [address] [place] [address] Care Team Providers Care Field Marketing Team Leader Name Role Phone Mauri De León MD Primary Care Provider [phone] Allergies Active Allergy Reactions Criticality Noted Date Comments Red Dye Swelling 12/10/2023 Usually in dips (food) Medications atorvastatin 40 MG tablet Take 1 tablet by mouth daily. 09/25/2020 Active meloxicam 15 MG tablet Take 15 mg by mouth daily. 09/25/2020 Active fluticasone propionate 50 MCG/ACT nasal spray 2 sprays by Nasal route daily. 07/03/2020 Active Testosterone 10 MG/ACT (2%) Gel 09/27/2020 Act sandrine hydroCHLOROthia zide (HYDRODIURIL) 25 MG tablet Take 1 tablet (25 mg total) by mouth every morning. New dose 90 tablet 1 05/07/2023 Active fexofenadine (REJI) 180 MG tablet Take 1 tablet (180 mg total) by mouth daily. Active sildenafil (VIAGRA) 50 MG tablet Take 1 tablet (50 mg total) by mouth as needed. 11/11/2023 Active EPINEPHrine 0.3 MG/0.3ML injection Inject 0.3 mLs (0.3 mg total) into the muscle. 04/20/2025 Active metFORMIN ER (GLUCOPHAGE-XR) 500 MG 24 hr tablet 03/21/2025 Active B-D 3CC LUER-ROHIT SYR 25GX5/8 25G X 5/8 3 ML Misc USE FOR ALLERGY SHOTS DIRECTED 04/21/2025 Active tamsulosin (FLOMAX) 0.4 MG Cap Take 1 capsule (0.4 mg total) by mouth. 02/28/2025 Active lisinopril (PRINIVIL) 40 MG tablet Take 1 tablet (40 mg total) by mouth daily. 90 tablet 3 05/17/2025 Active Active Problems Problem Noted Date Diagnosed Date Dyspnea on exertion 12/13/2020 History of cardiac murmur 12/13/2020 Obesity (BMI 30-39.9) 12/13/2020 Hyperlipidemia Essential hypertension Encounters Date Type Department Care Team Description 10/11/2025 Scan [facility] [place] [address] Scanned, Doc Pccl from Last 3 Months Immunizations Immunization Administration Dates Next Due Flucelvax 6 Months+ (Prefill ed Syringe) 07/22/2020,07/21/2019,10/05/2018,2016 Shingrix 10/21/2020,07/22/2020 Family History Medical History Relation [...] AM CDT 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 Gender Identity Not on file Sexual Orientation Not on file 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 Not on file Not on file Not on file [employer] Not on file Not on file Not on file Last Filed Vital Signs Vital Sign Reading Time Taken Comments Blood Pressure 136/92 04/28/2025 10:19 AM CDT Pulse 66 04/28/2025 10:19 AM CDT Temperature - - Respiratory Rate - - Oxygen Saturation 96% 04/28/2025 10:19 AM CDT Inhaled Oxygen Concentration - - Weight 126.1 kg (278 lb) 04/28/2025 10:19 AM CDT Height 185.4 cm (6' 1) 04/28/2025 10:19 AM CDT Body Mass Index 36.68 04/28/2025 10:19 AM CDT Plan of Treatment Upcoming Encounters Date Type Department Care Team (Late st Contact Info) Description 05/04/2026 9:00 AM CDT Office Visit [facility] [address] [place], [place] [id number] Roxie Amato MD [facility] [address] [place], [place] [id number] Health Maintenance Due Date Last Done Comments Colorectal Cancer Screening Colonoscopy (10 Years) 1960 Hepatitis C 1978 Pneumococcal Vaccine: 50+ Years (1 of 1 - PCV) 2010 DTaP, Tdap and Td Vaccines (2 - Td or Tdap) 01/27/2022 01/28/2012, 11/20/1995 COVID-19 Vaccine ( - season) 2025 09/01/2021, 02/20/2021, 01/31/2021 Influenza Adult (#1) 2025 09/01/2023, 09/02/2022, 09/01/2021, Additional history exists RSV Immunization or 60+ Years (1 - 1-dose 75+ series) 2035 Hepatitis A Vaccines Completed 08/01/1998, 09/30/1997, 10/05/1996 Meningococcal Vaccine Aged Out 01/28/2012 No damian noé eligible based on patient's age to complete this topic Zoster Vaccines Completed 10/21/2020, 07/22/2020 Meningococcal B Vaccine Aged Out No l onger eligible based on patient's age to complete this topic RSV Immunizations Under 20 Months Aged Out No longer eligible based on patient's age to complete this topic Insurance Care Teams Field Marketing Team Leader Relationship Specialty Start Date End Date Mauri De León MD [address] [place] [address] PCP - General FAMILY PRACTICE 11/10/20
--- OUTSIDE RECORDS SUMMARY | 2025-11-21 10:16 | XMS_ITS | Patient Health Record ---
Author Organization [facility] Address [address] [place] [address] Care Team Providers Care Cathead Operator Name Role Phone WileyStefan Primary Care Provider [phone] Keven ALVARADO, Kevan Unavailable Unavailable Reason For Referral No Information Plan Of Treatment No Information Insurance Providers Payer Name Payer Address Payer Phone Subscriber Number Group Number Insured Name Patient Relationship to Insured Coverage Start Date Coverage End Date [facility] [address] [place] [address] [id number] Jayy Soares Self - patient is the insured
== END 2025-11-21 09:51 | disposition home or self-care (01) ==
PROVIDERS: PCP Family Medicine
DX: E78.2 Mixed hyperlipidemia (principal); I10 Essential (primary) hypertension; Z01.818 Encounter for other preprocedural examination; I44.0 Atrioventricular block, first degree
CPT/HCPCS: 93005